=== PATIENT | male | born 1960 | race Caucasian/White ===

== ENCOUNTER → 2017-09-09 | Outpatient (CLI) | payer BC ==
--- NOTE | 2017-09-09 09:42 | XR ---
EXAMINATION TYPE: XR chest 2V DATE OF EXAM: 09/09/2017 COMPARISON: 07/04/2016 INDICATION: Cough TECHNIQUE: Frontal and lateral views of the chest are obtained. FINDINGS: The heart size is normal. The pulmonary vasculature is normal. The lungs are clear. There is prior cardiac surgery for cardiac valve. Sternotomy wires are in the m idline. IMPRESSION: 1. No acute pulmonary process.
== END ==
LOC: RADXRMAIN 09:08
PROVIDERS: ATTEND Family Medicine
DX: R05 Cough (principal)
CPT/HCPCS: 71046

== ENCOUNTER 2017-11-19 07:29 | Day surgery (SDC) | payer BC ==
[2017-11-18 08:33] VITALS: BMI 35.2
[~2017-11-19 07:29] MED LIST: LACTATED RINGERS 1,000 ML IV SCH
[2017-11-19 08:16] VITALS: TEMP 97.2
[2017-11-19] MEDS ORDERED: PROPOFOL 10 MG/ML 20 ML VIAL IV ONE (08:28)
--- NOTE | 2017-11-19 08:32 | P.GSHP ---
History of Present Illness H&P Date: 11/19/17 CHIEF COMPLAINT: Colon screen HISTORY OF PRESENT ILLNESS: The patient is a 56-year-old male who presents for colon screen. Lower endoscopy was offered for further evaluation and management. PAST MEDICAL HISTORY: Please see list. PAST SURGICAL HISTORY: Please see list. MEDICATIONS: Please see list. ALLERGIES: Please see list. SOCIAL HISTORY: No illicit drug use FAMILY HISTORY: No reports of Crohn disease or ulcerative colitis. REVIEW OF ORGAN SYSTEMS: CONSTITUTIONAL: No reports of fevers or chills. PHYSICAL EXAM: VITAL SIGNS: Stable GENERAL: Well-developed pleasant in no acute distress. HEENT: No scleral icterus. Extraocular movements grossly intact. Moist buccal mucosa. NECK: Supple without lymphadenopathy. CHEST: Unlabored respirations. Equal bilateral excursions. CARDIOVASCULAR: Regular rate and rhythm. Distal 2+ pulses. ABDOMEN: Soft, nontender, nondistended. MUSCULOSKELETAL: No clubbing, cyanosis, or edema. ASSESSMENT: 1. Colon screen. PLAN: 1. Recommend proceeding with a lower endoscopy Past Medical History Past Medical History: Hypertension, Musculoskeletal Disorder Additional Past Medical History / Comment(s): . GOUT. SL VARICOSE VEINS. HX RT SHOULDER DISLOCATION. diverticultitis. History of Any Multi-Drug Resistant Organisms: None Reported Past Surgical History: Appendectomy, Cardiac Valve Replacement, Coronary Bypass/ CABG, Orthopedic Surgery Additional Past Surgical History / Comment(s): RT KNEE SURGERY. EPID INJ IN BACK. LASIK EYE SURG., CABG-2014, MITRAL VALVE 2014 Past Anesthesia/Blood Transfusion Reactions: No Reported Reaction Smoking Status: Never smoker - Past Family History Mother Family Medical History: Hypertension, Myocardial Infarction ([place]) Medications and Allergies Home Medications Medication Instructions Recorded Confirmed Type Febuxostat [Uloric] 40 mg PO DAILY 12/21/14 11/19/17 History Metoprolol Succinate [Toprol XL] 25 mg PO DAILY 12/21/14 11/19/17 History Cyclobenzaprine [Flexeril] 10 mg PO HS PRN 07/02/16 11/18/17 History Naproxen [Naproxen] 500 mg PO BID 07/02/16 11/19/17 History Aspirin EC [Ecotrin Low Dose] 81 mg PO DAILY 11/18/17 11/19/17 History Allergies Allergy/AdvReac Type Severity Reaction Status Date / Time Penicillins AdvReac aches Verified 11/18/17 08:28 Surgical - Exam Vital Signs Temp Pulse Resp Pulse Ox 97.2 F L 62 14 95 11/19/17 08:15 11/19/17 08:15 11/19/17 08:15 11/19/17 08:15
--- NOTE | 2017-11-19 08:52 | P.PCN ---
Date of Procedure: 11/19/17 Description of Procedure: PREOPERATIVE DIAGNOSIS: Colonoscopy screening. POSTOPERATIVE DIAGNOSIS: Colonoscopy screening. Multiple tubular adenomas throughout the colon. Multiple sigmoid diverticulosis OPERATION: Colonoscopy to the ileocecal valve and appendiceal orifice. Colonoscopy with multiple hot snare polypectomies. SURGEON: Chelsi Godfrey MD. ANESTHESIA: MAC. INDICATIONS: The patient is a 56-year-old male who presents for colonoscopy screening. Benefits and risks were described and informed consent was obtained. DESCRIPTION OF PROCEDURE: The patient had undergone Gatorade, MiraLAX and Dulcolax prep. He had been brought into the operating room and laid in the left lateral decubitus position. The prostate was smooth and without nodularity. After adequate intravenous sedation, the rectum was examined with 2% lidocaine jelly. No external hemorrhoids were encountered. The rectal tone was within normal limits. No lesions were palpated in the rectal vault. An Olympus colonoscope was advanced until the ileocecal valve and appendiceal orifice were clearly viewed. The prep was fair with visualization of the mucosal folds. The scope was removed with visualization of each mucosal fold. Scattered diverticulosis was encountered. Multiple colonic polyps were found and hot snare polypectomy. No evidence of focal colitis was found. Retroflexion of the scope demonstrated no grade 1 internal hemorrhoids without active bleeding or inflammation. The colon was desufflated. The patient had tolerated the procedure well. Withdrawal time was over 6 minutes. FINDINGS: No internal hemorrhoids, grade 1 No external hemorrhoids, grade 2. No arteriovenous malformations. Removal of 3 polyps from the proximal, mid transverse colon and descending colon : - Snare polypectomy proximal transverse colon, 10 mm tubulovillous adenoma polyp. - Snare polypectomy mid-transverse colon, 8 mm flat villous adenoma polyp. - Snare polypectomy descending colon, 5 mm flat villous adenoma polyp. Diffuse sigmoid diverticulosis No focal colitis. RECOMMENDATIONS: Given severity of tubular adenomas, recommend repeat colonoscopy 1 year, 2019. Plan - Discharge Summary New Discharge Prescriptions: No Action Metoprolol Succinate [Toprol XL] 25 mg PO DAILY Febuxostat [Uloric] 40 mg PO DAILY Naproxen [Naproxen] 500 mg PO BID Cyclobenzaprine [Flexeril] 10 mg PO HS PRN PRN Reason: Muscle Pain Aspirin EC [Ecotrin Low Dose] 81 mg PO DAILY Discharge Medication List Febuxostat [Uloric] 40 mg PO DAILY 12/21/14 [History] Metoprolol Succinate [Toprol XL] 25 mg PO DAILY 12/21/14 [History] Cyclobenzaprine [Flexeril] 10 mg PO HS PRN 07/02/16 [History] Naproxen [Naproxen] 500 mg PO BID 07/02/16 [History] Aspirin EC [Ecotrin Low Dose] 81 mg PO DAILY 11/18/17 [History]
[2017-11-19 09:04] VITALS: BP 120/76; PULSE 59; RESP 18
== END 2017-11-19 09:35 | disposition home or self-care (01) ==
LOC: ORWHC2ENDO 07:29
PROVIDERS: ATTEND Surgery Plastic and Reconstructive Surgery
DX: Z12.11 Encounter for screening for malignant neoplasm of colon (principal); D12.4 Benign neoplasm of descending colon; D12.3 Benign neoplasm of transverse colon; K57.30 Diverticulosis of large intestine without perforation or abscess without bleeding; I25.10 Atherosclerotic heart disease of native coronary artery without angina pectoris; I10 Essential (primary) hypertension; M10.9 Gout, unspecified; M17.9 Osteoarthritis of knee, unspecified; Z95.1 Presence of aortocoronary bypass graft; Z95.2 Presence of prosthetic heart valve; Z79.82 Long term (current) use of aspirin; Z79.1 Long term (current) use of non-steroidal anti-inflammatories (NSAID); Z79.899 Other long term (current) drug therapy; Z88.0 Allergy status to penicillin
CPT/HCPCS: 88305; 45385; J2704

== ENCOUNTER → 2018-09-30 | Outpatient (CLI) | payer BC ==
--- NOTE | 2018-09-30 10:11 | US ---
EXAMINATION TYPE: US abdomen complete DATE OF EXAM: 09/30/2018 COMPARISON: 07/04/2016 CLINICAL HISTORY: 57-year-old male R74.8 Abnormal Labs,R10.11 RUQ Abd Pain. Elevated LFT's TECHNIQUE: Multiple sonographic images of the abdomen are obtained. 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 Gallbladder: wnl Evidence for sonographic Goldberg's sign: No CBD: wnl Spleen: wnl Right Kidney: wnl Left Kidney: wnl Upper IVC: wnl Abd Aorta: wnl IMPRESSION: Hepatomegaly (19.3 cm). There is moderate to severe hepatic steatosis. Correlate with LFTs, lipid pro file, and patient risk factors. No cholelithiasis or biliary ductal dilatation.
== END ==
LOC: RADUSWWP 09:12
PROVIDERS: ATTEND Family Medicine
DX: K76.0 Fatty (change of) liver, not elsewhere classified (principal); R16.0 Hepatomegaly, not elsewhere classified
CPT/HCPCS: 76700

== ENCOUNTER 2018-12-26 08:35 | Inpatient (IN) | payer BC ==
--- NOTE | 2018-12-26 08:59 | ED ---
General Adult HPI - General Chief complaint: Upper Respiratory Infection Stated complaint: cough Time Seen by Provider: 12/26/18 08:50 Source: patient, RN notes reviewed Mode of arrival: ambulatory Limitations: no limitations - History of Present Illness Initial comments: Patient is a pleasant 58-year-old male presenting to the emergency Department with cough. Symptoms have been present now for 4-5 weeks. Patient did see his regular doctor and was prescribed medication without any improvement. Symptoms have somewhat worsened. Patient does have cough with occasional yellow sputum. Patient does have some mild associated dyspnea at times. Patient only gets chest discomfort with coughing. Patient states he does travel a lot for work. No leg pain or leg swelling. No significant fevers. Dyspnea does worsen somewhat with exertion. Patient does have orthopnea. - Related Data Home Medications Medication Instructions Recorded Confirmed Febuxostat [Uloric] 40 mg PO DAILY 12/21/14 12/26/18 Aspirin EC [Ecotrin Low Dose] 81 mg PO DAILY 11/18/17 12/26/18 Atorvastatin Calcium [Lipitor] 40 mg PO DAILY 12/26/18 12/26/18 Metoprolol Tartrate 25 mg PO HS 12/26/18 12/26/18 Metoprolol Tartrate 50 mg PO QAM 12/26/18 12/26/18 Allergies Allergy/AdvReac Type Severity Reaction Status Date / Time Penicillins AdvReac aches Verified 12/26/18 09:03 Review of Systems ROS Statement: Those systems with pertinent positive or pertinent negative responses have been documented in the HPI. ROS Other: All systems not noted in ROS Statement are negative. Constitutional: Denies: fever Eyes: Denies: eye pain ENT: Denies: ear pain Respiratory: Reports: as per HPI, cough Cardiovascular: Reports: dyspnea on exertion, orthopnea. Denies: edema Endocrine: Denies: fatigue Gastrointestinal: Denies: abdominal pain Genitourinary: Denies: dysuria Musculoskeletal: Denies: back pain Skin: Denies: rash Neurological: Denies: weakness Past Medical History Past Medical History: Hypertension, Musculoskeletal Disorder Additional Past Medical History / Comment(s): . GOUT. SL VARICOSE VEINS. HX RT SHOULDER DISLOCATION. diverticultitis. History of Any Multi-Drug Resistant Organisms: None Reported Past Surgical History: Appendectomy, Cardiac Valve Replacement, Coronary Bypass/CABG, Orthopedic Surgery Additional Past Surgical History / Comment(s): RT KNEE SURGERY. EPID INJ IN BACK. LASIK EYE SURG., CABG-2015, MITRAL VALVE 2015 Past Anesthesia/Blood Transfusion Reactions: No Reported Reaction Past Psychological History: No Psychological Hx Reported Smoking Status: Never smoker Past Alcohol Use History: None Reported Past Drug Use History: None Reported - Past Family History Mother Family Medical History: Hypertension, Myocardial Infarction ([place]) General Exam Limitations: no limitations General appearance: alert, in no apparent distress Head exam: Present: atraumatic Eye exam: Present: normal appearance, PERRL ENT exam: Present: normal oropharynx Neck exam: Present: normal inspection Respiratory exam: Present: normal lung sounds bilaterally. Absent: chest wall tenderness Cardiovascular Exam: Present: regular rate, irregular rhythm GI/Abdominal exam: Present: soft. Absent: tenderness Extremities exam: Present: normal inspection. Absent: pedal edema, calf tenderness Neurological exam: Present: alert Psychiatric exam: Present: normal affect, normal mood Skin exam: Present: normal color Course Vital Signs 12/26/18 12/26/18 12/26/18 08:37 08:45 11:15 Temperature 97.6 F Pulse Rate 107 H 18 L Respiratory 16 16 105 H Rate Blood Pressure 151/99 105/94 O2 Sat by Pulse 97 97 Oximetry EKG Findings - EKG Comments: EKG Findings:: Atrial flutter with a rate of 99. QRS 96. QT 380. QTC 47. Left axis. Poor R-wave progression. Inferior Q waves. No acute ST change. Frequent PVCs. Medical Decision Making - Medical Decision Making Patient reevaluated and resting comfortably at bedside. Heart rate between 108 and 117. Patient updated on results and plan. Case discussed in detail with Dr. Santiago, covering for Dr. Holguin, who will admit. - Lab Data Result diagrams: 12/26/18 09:30 12/26/18 09:30 Lab Results 12/26/18 12/26/18 12/26/18 Range/Units 09:30 09:30 09:30 WBC 7.0 (3.8-10.6) k/uL RBC 5.01 (4.30-5.90) m/uL Hgb 15.1 (13.0-17.5) gm/dL Hct 44.8 (39.0-53.0) % MCV 89.5 (80.0-100.0) fL MCH 30.1 (25.0-35.0) pg MCHC 33.7 (31.0-37.0) g/dL RDW 15.2 (11.5-15.5) % Plt Count 185 (150-450) k/uL Neutrophils % 66 % Lymphocytes % 21 % Monocytes % 5 % Eosinophils % 5 % Basophils % 1 % Neutrophils # 4.6 (1.3-7.7) k/uL Lymphocytes # 1.5 (1.0-4.8) k/uL Monocytes # 0.4 (0-1.0) k/uL Eosinophils # 0.3 (0-0.7) k/uL Basophils # 0.0 (0-0.2) k/uL PT (9.0-12.0) sec INR (<1.2) APTT (22.0-30.0) sec D-Dimer (<0.60) mg/L FEU Sodium 142 (137-145) mmol/L Potassium 4.1 (3.5-5.1) mmol/L Chloride 109 H (98-107) mmol/L Carbon Dioxide 25 (22-30) mmol/L Anion Gap 8 mmol/L BUN 13 (9-20) mg/dL Creatinine 0.66 (0.66-1.25) mg/dL Est GFR (CKD-EPI)AfAm >90 (>60 ml/min/1.73 sqM) Est GFR (CKD-EPI)NonAf >90 (>60 ml/min/1.73 sqM) Glucose 143 H (74-99) mg/dL Calcium 8.8 (8.4-10.2) mg/dL Total Bilirubin 1.1 (0.2-1.3) mg/dL AST 64 H (17-59) U/L ALT 92 H (21-72) U/L Alkaline Phosphatase 62 (38-126) U/L Creatine Kinase 109 (55-170) U/L Troponin I (0.000-0.034) ng/mL NT-Pro-B Natriuret Pep 2310 pg/mL Total Protein 6.6 (6.3-8.2) g/dL Albumin 3.9 (3.5-5.0) g/dL Influenza Type A RNA (Not Detectd) Influenza Type B (PCR) (Not Detectd) 0412/26/18 12/26/18 Range/Units 09:30 10:08 10:21 WBC (3.8-10.6) k/uL RBC (4.30-5.90) m/uL Hgb (13.0-17.5) gm/dL Hct (39.0-53.0) % MCV (80.0-100.0) fL MCH (25.0-35.0) pg MCHC (31.0-37.0) g/dL RDW (11.5-15.5) % Plt Count (150-450) k/uL Neutrophils % % Lymphocytes % % Monocytes % % Eosinophils % % Basophils % % Neutrophils # (1.3-7.7) k/uL Lymphocytes # (1.0-4.8) k/uL Monocytes # (0-1.0) k/uL Eosinophils # (0-0.7) k/uL Basophils # (0-0.2) k/uL PT 10.9 (9.0-12.0) sec INR 1.0 (<1.2) APTT 28.2 (22.0-30.0) sec D-Dimer 0.54 (<0.60) mg/L FEU Sodium (137-145) mmol/L Potassium (3.5-5.1) mmol/L Chloride (98-107) mmol/L Carbon Dioxide (22-30) mmol/L Anion Gap mmol/L BUN (9-20) mg/dL Creatinine (0.66-1.25) mg/dL Est GFR (CKD-EPI)AfAm (>60 ml/min/1.73 sqM) Est GFR (CKD-EPI)NonAf (>60 ml/min/1.73 sqM) Glucose (74-99) mg/dL Calcium (8.4-10.2) mg/dL Total Bilirubin (0.2-1.3) mg/dL AST (17-59) U/L ALT (21-72) U/L Alkaline Phosphatase (38-126) U/L Creatine Kinase (55-170) U/L Troponin I <0.012 (0.000-0.034) ng/mL NT-Pro-B Natriuret Pep pg/mL Total Protein (6.3-8.2) g/dL Albumin (3.5-5.0) g/dL Influenza Type A RNA Not Detected (Not Detectd) Influenza Type B (PCR) Not Detected (Not Detectd) - Radiology Data Radiology results: image reviewed (Chest x-ray shows mild cardiomegaly.) Critical Care Time Critical Care Time: Yes Total Critical Care Time: 32 Disposition Clinical Impression: Atrial flutter with rapid ventricular response, CHF (congestive heart failure) Disposition: ADMITTED IP TO THIS HOSP Is patient prescribed a controlled substance at d/c from ED?: No Referrals: Dionicio Holguin DO [Primary Care Provider] - 1-2 days Decision Time: 12:22
--- NOTE | 2018-12-26 10:03 | XR ---
EXAMINATION TYPE: XR chest 2V DATE OF EXAM: 12/26/2018 HISTORY: difficulty breathing. REFERENCE: Previous study dated 09/09/2017. FINDINGS: There has been a midline sternotomy. The heart is mildly enlarged. The lungs appear clear. Pleural space are clear. IMPRESSION: MILD CARDIOMEGALY.
[2018-12-26 10:17] LABS: Basophils % (A) 1 %; Eosinophils # (A) 0.3 k/uL (0-0.7); Eosinophils % (A) 5 %; HCT 44.8 % (39.0-53.0); HGB 15.1 gm/dL (13.0-17.5); Lymphocytes # (A) 1.5 k/uL (1.0-4.8); Lymphocytes % (A) 21 %; MCH 30.1 pg (25.0-35.0); MCHC 33.7 g/dL (31.0-37.0); MCV 89.5 fL (80.0-100.0); Mean Platelet Volume 7.9; Monocytes # (A) 0.4 k/uL (0-1.0); Monocytes % (A) 5 %; Neutrophils # (A) 4.6 k/uL (1.3-7.7); Neutrophils % (A) 66 %; Platelet Count 185 k/uL (150-450); RBC 5.01 m/uL (4.30-5.90); RDW 15.2 % (11.5-15.5)
[2018-12-26 10:23] LABS: ALT 92 U/L (21-72); AST 64 U/L (17-59); Albumin 3.9 g/dL (3.5-5.0); Alkaline Phosphatase 62 U/L (38-126); Anion Gap 8 mmol/L; Blood Urea Nitrogen 13 mg/dL (9-20); Calcium 8.8 mg/dL (8.4-10.2); Carbon Dioxide 25 mmol/L (22-30); Chloride 109 mmol/L (98-107); Creatine Kinase 109 U/L (55-170); Glucose 143 mg/dL (74-99); Potassium 4.1 mmol/L (3.5-5.1); Sodium 142 mmol/L (137-145); Total Bilirubin 1.1 mg/dL (0.2-1.3); Total Protein 6.6 g/dL (6.3-8.2)
[2018-12-26 10:32] LABS: D-Dimer 0.54 mg/L FEU (<0.60); Partial Thromboplastin Time 28.2 sec (22.0-30.0); Prothrombin Time 10.9 sec (9.0-12.0)
[2018-12-26] MEDS ORDERED: HEPARIN SODIUM,PORCINE 5,000 UNIT/ML 1 ML VIAL IV ONE (12:20)
[2018-12-26] MEDS ORDERED: HEPARIN SODIUM,PORCINE 5,000 UNIT/ML 1 ML VIAL IV PRN (12:20)
[2018-12-26] MEDS ORDERED: ASPIRIN 81 MG PO STA (12:22)
[2018-12-26] MEDS ORDERED: NITROGLYCERIN SL TABS 0.4 MG TAB SUBLINGUAL PRN (12:22)
[2018-12-26] MEDS ORDERED: DILTIAZEM 125 MG in SODIUM CHLORIDE 0.9% 100 ML IV SCH (12:30)
[2018-12-26] MEDS ORDERED: HEPARIN SOD,PORK IN 0.45% NACL 25,000 UNIT in 0.45% NACL 1 250ML.BAG IV SCH (12:30)
[2018-12-26] MEDS: FUROSEMIDE 10 MG/ML 4 ML VIAL IV SCH ×2 (13:03→20:49)
[2018-12-26] MEDS ORDERED: NITROGLYCERIN OINT 1 INCH/GM PACKET TOPICAL SCH (18:00)
[2018-12-26] MEDS ORDERED: METOPROLOL TARTRATE 25 MG TAB PO SCH (21:00)
--- NOTE | 2018-12-26 22:28 | HP ---
HISTORY AND PHYSICAL DATE OF SERVICE: December 26, 2018. PRESENTING COMPLAINT: Cough, short of breath. HISTORY OF PRESENTING COMPLAINT: Pleasant 58-year-old patient of Dr. Holguin. Chronic stable medical conditions include hypertension, gout, mitral valve repair from endocarditis, diverticulosis. The patient back in 2016 had mitral valve endocarditis went down to [facility] where he had a bovine valve replaced. The patient, about for a month, has had respiratory symptoms, cough, shortness of breath and had some yellow sputum. Did get antibiotics though he did not feel better. Then he kept having the same symptoms back and for forth, back and occasionally yellow sputum. Sometimes he gets sweats at night, but no fever. No chills. Appetite has been okay. Bowels have been okay. He finally decided to come in, get checked out. The patient found to be in atrial fibrillation with rapid ventricular rate about 120s. Also found to be in congestive heart failure, was started on IV Lasix, IV Cardizem drip, IV heparin, admitted for the same. No chest pain per se. REVIEW OF SYSTEMS: CONSTITUTIONAL: Tired. HEENT None. RESPIRATORY as above. CARDIOVASCULAR: As above. GASTROINTESTINAL: None. GENITOURINARY: None. MUSCULOSKELETAL none. DERMATOLOGICAL, HEMATOLOGIC, LYMPHATIC: none. PSYCHIATRY none. NEUROLOGICAL: None. PAST MEDICAL HISTORY: Hypertension, musculoskeletal disorder, gout, right shoulder dislocation, diverticulitis, endocarditis of the mitral valve. PAST SURGICAL HISTORY: Appendectomy, cardiac valve replacement, right knee surgery, LASIK eye surgery, mitral valve repair in 2014. SOCIAL HISTORY: No smoking, no alcohol. . 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 FAMILY HISTORY: Hypertension, myocardial infarction. HOME MEDICATIONS: 1. Metoprolol 50 mg in the morning, 25 mg at night. 2. Uloric 40 mg a day. 3. Lipitor 40 mg a day. 4. Aspirin 81 mg a day. ALLERGIES: PENICILLIN. PHYSICAL EXAMINATION: VITAL SIGNS: Temperature 97.6, pulse 120, respirations 18, blood pressure 115/99, pulse ox 97% on room air. GENERAL APPEARANCE: Well built. BMI 40.3. Sitting up a bit tired-appearing. EYES: Pupils equal. Conjunctivae normal. HEENT: External appearance of nose and ears normal. Oral cavity normal. NECK: JVD unable to assess. Mass not palpable. RESPIRATORY: Effort increased. LUNGS: Diminished breath sounds, some crackles. CARDIOVASCULAR: Heart sounds irregular. No edema. ABDOMEN: Distended, soft. Liver and spleen not palpable. LYMPHATICS: No lymph nodes palpable in the neck and axilla. PSYCHIATRY: Alert and oriented x3. Mood and affect normal. NEUROLOGICAL: Pupils equal. Cranial nerves grossly intact. Power and sensation grossly intact. INVESTIGATIONS: Reviewed in the clinical context. White count 7, hemoglobin 15.1, potassium 4.1, BUN and creatinine is normal. Troponin times two is negative. Influenza A and B is negative. EKG tracing personally reviewed by me shows atrial flutter with a variable rate. Chest x-ray film personally reviewed by me shows cardiomegaly, venous prominence. ASSESSMENT: 1. New onset atrial flutter, duration unclear with rate uncontrolled. 2. 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 3. Acute congestive heart failure, EF not known. 4. Essential hypertension. 5. Chronic gout. 6. Diverticulosis. 7. Morbid obesity, BMI 40.3. 8. Probably viral bronchitis. PLAN: The patient is currently on IV heparin, IV Cardizem, beta bret. Home medications are resumed. Care was discussed with the patient. Cardiology was consulted. Copy to Dr. Holguin. The patient follows with regulation supervisor, Dr. Jerson Santa. MMODL / IJN: [id number] /
[2018-12-27] MEDS: FUROSEMIDE 10 MG/ML 4 ML VIAL IV SCH (04:59)
[2018-12-27 07:08] LABS: Partial Thromboplastin Time 27.8 sec (22.0-30.0)
[2018-12-27 07:13] LABS: Anion Gap 9 mmol/L; Blood Urea Nitrogen 15 mg/dL (9-20); Calcium 9.3 mg/dL (8.4-10.2); Carbon Dioxide 33 mmol/L (22-30); Chloride 100 mmol/L (98-107); Cholesterol 122 mg/dL (<200); Glucose 152 mg/dL (74-99); HDL Cholesterol 38 mg/dL (40-60); LDL Cholesterol,Calculated 52 mg/dL (0-99); Potassium 3.9 mmol/L (3.5-5.1); Sodium 142 mmol/L (137-145); Triglycerides 162 mg/dL (<150)
[2018-12-27 07:23] LABS: Basophils # (A) 0.1 k/uL (0-0.2); Basophils % (A) 1 %; Eosinophils # (A) 0.4 k/uL (0-0.7); Eosinophils % (A) 4 %; HCT 48.2 % (39.0-53.0); HGB 16.3 gm/dL (13.0-17.5); Lymphocytes # (A) 1.7 k/uL (1.0-4.8); Lymphocytes % (A) 19 %; MCH 30.8 pg (25.0-35.0); MCHC 33.7 g/dL (31.0-37.0); MCV 91.3 fL (80.0-100.0); Mean Platelet Volume 7.3; Monocytes # (A) 0.5 k/uL (0-1.0); Monocytes % (A) 6 %; Neutrophils # (A) 6.2 k/uL (1.3-7.7); Neutrophils % (A) 69 %; Platelet Count 229 k/uL (150-450); RBC 5.28 m/uL (4.30-5.90); RDW 14.1 % (11.5-15.5)
[2018-12-27] MEDS: ALLOPURINOL 100 MG TAB PO SCH (07:28)
[2018-12-27] MEDS: ATORVASTATIN 40 MG TAB PO SCH (07:29)
[2018-12-27] MEDS ORDERED: METOPROLOL TARTRATE 50 MG TAB PO SCH (09:00)
[2018-12-27] MEDS ORDERED: ASPIRIN 325 MG TAB PO SCH (09:00)
[2018-12-27] MEDS ORDERED: Potassium Replacement Protocol 1 EACH MISC MISCELLANE PRN (09:41)
[2018-12-27] MEDS ORDERED: Magnesium Replacement Protocol 1 EACH MISC MISCELLANE PRN (09:42)
--- NOTE | 2018-12-27 10:34 | CONS ---
CONSULTATION HISTORY OF PRESENT ILLNESS: Mr. Ceron is a 58-year-old male status post mitral valve replacement and single bypass to the LAD following admission in 2016 with endocarditis and embolic phenomenon. He is followed by Dr. Santa on a regular basis. He has been doing well until the last month when he started complaining of progressive dyspnea and cough. He was treated with antibiotics for bronchitis, but did not feel better. He came into the emergency room, was noted to be in atrial flutter. The patient has chest discomfort from the coughing. He had no clear documented fever at home, although he felt warm. He has no significant peripheral edema. He has some orthopnea. No PND. He is not aware of the arrhythmia. He had one episode of palpitation that occurred a week ago that he thought was related to drinking Mountain Dew. He is usually not very active physically but has no change in his activity, although he is feeling more fatigued and tired. He has no prior history of atrial fibrillation. He had an echocardiogram as an outpatient last week, the results are not available to me, but he thinks he was told that he may have been in atrial fibrillation at that time. His coronary risk factors are remarkable for hypertension and hyperlipidemia. He is nonsmoker and nondiabetic. MEDICATION: Include aspirin once a day, metoprolol 50 in the morning, 25 in the afternoon, Uloric and Lipitor 40 mg daily. REVIEW OF SYSTEMS: RESPIRATORY system: He has the cough, the dyspnea on exertion. Wheezing. No history of obstructive lung disease. GI system: No recent GI bleed. No peptic ulcer disease. system: No dysuria or hematuria. NERVOUS SYSTEM: No stroke or seizure. PHYSICAL EXAMINATION: He is a 58-year-old male, alert, oriented, in no apparent distress. Blood pressure 116/70 with a heart rate in the 80s. HEAD: Normocephalic. Eyes sclerae anicteric. NECK: Good carotid upstroke. No bruit. No jugular venous distention. LUNGS: Clear to auscultation. HEART: Irregularly irregular. S1-S2. No S3 with systolic murmur at the base. No diastolic murmur. No rub. ABDOMEN: Soft, nontender. Positive bowel sounds. No organomegaly. Obese. EXTREMITIES: No edema. Intact distal pulses. LAB DATA: Revealed atrial flutter with variable AV block and occasional PVCs and nonspecific ST-T wave changes. Troponin less than 0.012 for 3 samples. Potassium 3.9, BUN and creatinine 15 and 0.88. Cholesterol 122, LDL 52, hemoglobin of 16.3. Chest x-ray shows no acute infiltrate. IMPRESSION: 1. Atrial flutter-fibrillation of recent onset, not diagnosed in the past. Duration unclear. 2. Status post mitral valve replacement and single bypass in a setting of mitral valve endocarditis and embolic phenomenon. 3. History of hypertension. 4. Hyperlipidemia. RECOMMENDATION: I will switch him to oral anticoagulation, oral diuretics as well as increase the dose of beta bret. I will obtain the results of his echocardiogram that was obtained as an outpatient. If he was in atrial fibrillation at that time then probably has been going on longer than we think. Once he is anticoagulated, he would require to be cardioverted. Depending on his progress, further recommendations will be made. Those findings and recommendations were discussed with the patient and his family and they are in full understanding and agreement. CHERYL / TORIBION: [id number] /
[2018-12-27] MEDS: APIXABAN 5 MG TAB PO SCH ×2 (10:43→19:46)
[2018-12-27] MEDS: MAGNESIUM SULFATE-D5W PMX 1 GM in DEXTROSE/WATER 1 100ML.BAG IVPB SCH ×2 (10:45→14:28)
[2018-12-27] MEDS: POTASSIUM CHLORIDE ER 20 MEQ TAB.ER PO SCH ×2 (10:45→14:28)
[2018-12-27] MEDS: FUROSEMIDE 20 MG TAB PO SCH (16:51)
[2018-12-27] MEDS: METOPROLOL TARTRATE 50 MG TAB PO SCH (19:46)
--- NOTE | 2018-12-27 23:13 | PN ---
PROGRESS NOTE DATE OF SERVICE: 12/27/2018. PRESENTING COMPLAINT: Cough, short of breath. INTERVAL HISTORY: This patient admitted with atrial fibrillation, and congestive heart failure symptoms. Heart rate somewhat better controlled today. Does feel a bit tired. Sitting up. Medications adjusted by Cardiology earlier today. REVIEW OF SYSTEMS: Done for constitutional, cardiovascular, GI, pulmonary; relevant findings as above. CURRENT MEDICATIONS: Reviewed that include Eliquis, p.o. Lasix, Lopressor 50 mg b.i.d. PHYSICAL EXAMINATION: VITAL SIGNS: Temperature 97.1, pulse 98, respiratory rate 18, blood pressure 140/84, pulse ox 92% on room air. GENERAL APPEARANCE: Sitting up, awake. EYES: Pupils equal. Conjunctivae normal. NECK: JVD not raised. Mass not palpable. RESPIRATORY: Effort increased. LUNGS: Decreased breath sounds. CARDIOVASCULAR: Heart sounds irregular. No edema. ABDOMEN: Distended, soft. Liver and spleen not palpable. PSYCHIATRY: Alert and oriented x3. Mood and affect normal. INVESTIGATIONS: White count 9, hemoglobin 16.3, potassium 3.9, BUN and creatinine normal. TSH is 1.5. LDL 52. ASSESSMENT: 1. New onset atrial flutter, rate uncontrolled on presentation with some improvement. 2. 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 3. Acute congestive heart failure EF not known. 2D echo pending. 4. Essential hypertension. 5. Chronic gout. 6. Colonic diverticulosis. 7. Morbid obesity BMI 40.3. 8. Viral bronchitis. PLAN: Care was discussed with the patient and . Questions were answered. Current medications to continue. Await 2D echocardiogram. Follow telemetry. MMODL / IJN: [id number] /
[2018-12-28 06:50] LABS: Basophils # (A) 0.1 k/uL (0-0.2); Basophils % (A) 1 %; Eosinophils # (A) 0.4 k/uL (0-0.7); Eosinophils % (A) 5 %; HCT 48.3 % (39.0-53.0); HGB 16.3 gm/dL (13.0-17.5); Lymphocytes # (A) 2.1 k/uL (1.0-4.8); Lymphocytes % (A) 25 %; MCH 30.2 pg (25.0-35.0); MCHC 33.7 g/dL (31.0-37.0); MCV 89.7 fL (80.0-100.0); Mean Platelet Volume 7.6; Monocytes # (A) 0.5 k/uL (0-1.0); Monocytes % (A) 6 %; Neutrophils # (A) 5.2 k/uL (1.3-7.7); Neutrophils % (A) 62 %; Platelet Count 225 k/uL (150-450); RBC 5.38 m/uL (4.30-5.90); RDW 15.3 % (11.5-15.5); WBC 8.4 k/uL (3.8-10.6)
[2018-12-28 06:55] LABS: INR 1.1 (<1.2); Prothrombin Time 11.3 sec (9.0-12.0)
[2018-12-28 07:02] LABS: Anion Gap 6 mmol/L; Blood Urea Nitrogen 17 mg/dL (9-20); Calcium 10.3 mg/dL (8.4-10.2); Carbon Dioxide 31 mmol/L (22-30); Chloride 103 mmol/L (98-107); Glucose 140 mg/dL (74-99); Magnesium 1.7 mg/dL (1.6-2.3); Sodium 140 mmol/L (137-145)
[2018-12-28] MEDS: ALLOPURINOL 100 MG TAB PO SCH (09:06)
[2018-12-28] MEDS: ATORVASTATIN 40 MG TAB PO SCH (09:06)
[2018-12-28] MEDS: ASPIRIN 81 MG PO SCH (09:06)
[2018-12-28] MEDS: METOPROLOL TARTRATE 50 MG TAB PO SCH (09:06)
[2018-12-28] MEDS: APIXABAN 5 MG TAB PO SCH ×2 (09:06→20:44)
[2018-12-28] MEDS: FUROSEMIDE 20 MG TAB PO SCH ×2 (09:07→18:28)
[2018-12-28] MEDS ORDERED: SODIUM CHLORIDE 0.9% 1,000 ML IV SCH (10:15)
--- NOTE | 2018-12-28 12:50 | P.PN ---
Subjective Progress Note Date: 12/28/18 This is a 58-year-old gentleman who is status post mitral valve replacement and single bypass to the LAD. Patient does have history of hypertension, hyperlipidemia. He presented to the hospital on this admission with progressive dyspnea with associated cough, he was treated as an outpatient with antibiotics for possible bronchitis. Patient was found here to be in atrial flutter/fibrillation with rapid ventricular response. According the patient, he has noted himself to have palpitations off and on at home. He does drink Mountain Dew which has a lot of caffeine, he felt may be secondary to that. Patient also states that he had an echo cardiac gram with Doppler study performed last week at the office, he was asked during that time if he had any history of atrial fibrillation. The patient was seen in consultation by Dr. Kam, he was initiated on anticoagulation. Blood pressure 110/70 with a heart rate in the 100s this morning, 94% on room air. Continues to be in atrial fibrillation. He says states that overall his breathing is improved, but with exertion he still notices himself to be short of breath. His white blood cell count is 8.4, hemoglobin 16.3, platelet count 225. Sodium 140, potassium 4.0, BUN 17 and creatinine 0.8, magnesium 1.7 this morning. She was questioning this morning as to whether or not he could have his cardioversion while he is in the hospital, Dr. Kam did speak with them regarding cardioversion as an outpatient down the road. I did speak with Dr. Kam, JENNIFER will be scheduled tomorrow as well as elective cardioversion by Dr. Yodit Santa. The risks and the benefits were explained to the patient in detail. Objective - Vital Signs Vital signs: Vital Signs Temp 98.2 F 12/28/18 10:21 Pulse 76 12/28/18 11:54 Resp 16 12/28/18 11:54 BP 111/76 12/28/18 11:54 Pulse Ox 94 L 12/28/18 11:54 Intake & Output 12/27/18 12/28/18 12/28/18 18:59 06:59 18:59 Intake Total 1361.791 10 240 Output Total 1400 Balance -38.209 10 240 Weight 124.8 kg Intake: IV 250 10 Diltiazem 125 mg In 30 Sodium Chloride 0.9% 100 ml @ 5 MG/HR 5 mls/hr IV .Q24H KATE Rx#:[id number] Invasive Line 1 20 10 Magnesium Sulfate-D5w Pmx 200 1 gm In Dextrose/Water 1 100ml.bag @ 100 mls/hr IVPB Q1H KATE Rx#: [id number] Intake, IV Titration 271.791 Amount Diltiazem 125 mg In 107.667 Sodium Chloride 0.9% 100 ml @ 5 MG/HR 5 mls/hr IV .Q24H KATE Rx#:[id number] Heparin Sod,Pork in 0.45% 164.124 NaCl 25,000 unit In 0.45 % NaCl 1 250ml.bag @ 7.6 UNITS/KG/HR 9.959 mls/hr IV .Q24H KATE Rx#: [id number] Oral 840 240 Output: Urine 1400 Other: # Voids 3 1 0 - Exam PHYSICAL EXAMINATION: GENERAL: 58-year-old gentleman in no acute distress at the time of my examination HEENT: Head is atraumatic, normocephalic. Pupils equal, round. Sclera anicteric. Conjunctiva are clear. Mucous membranes of the mouth are moist. Neck is supple. There is no elevated jugular venous pressure. No carotid bruit is heard. HEART EXAMINATION: S1 and S2 irregularly irregular a systolic murmur is heard CHEST EXAMINATION: Lungs are clear to auscultation and precussion. No chest wall tenderness is noted on palpation or with deep breathing. ABDOMEN: Soft, nontender. Bowel sounds are heard. No organomegaly noted. EXTREMITIES: 2+ peripheral pulses with no evidence of peripheral edema and no calf tenderness noted. NEUROLOGIC patient is awake, alert and oriented 3 . . - Labs CBC & Chem 7: 12/28/18 06:18 12/28/18 06:18 Labs: Abnormal Lab Results - Last 24 Hours (Table) 12/28/18 Range/Units 06:18 Carbon Dioxide 31 H (22-30) mmol/L Glucose 140 H (74-99) mg/dL Calcium 10.3 H (8.4-10.2) mg/dL Assessment and Plan Plan: Assessment and plan #1 atrial flutter/fibrillation, of recent onset, persistent #2 status post mitral valve replacement and single bypass in setting of mitral valve endocarditis and embolic phenomenon #3 hypertension #4 hyperlipidemia Plan Continue anticoagulation, we will also increase the dose of beta bret for more optimal rate control. Patient will be scheduled morning undergo JENNIFER and elective cardioversion. The risks and the benefits were explained to the patient in detail and he is willing to proceed. DNP note has been reviewed, I agree with a documented findings and plan of care. Patient was seen and examined.
[2018-12-28 14:24] VITALS: BMI 38.3
--- NOTE | 2018-12-28 18:17 | PN ---
PROGRESS NOTE DATE OF SERVICE: December 28, 2018. PRESENTING COMPLAINT: Cough, short of breath. INTERVAL HISTORY: Patient admitted with atrial fibrillation, uncontrolled congestive heart failure symptoms. Heart rate is better controlled. Breathing is more stable. Cardiology is planning for a JENNIFER followed by cardioversion tomorrow. REVIEW OF SYSTEMS: Done for constitutional, cardiovascular, GI, pulmonary; relevant findings as above. CURRENT MEDICATIONS: Reviewed that include Eliquis, p.o. Lasix, Lopressor 75 mg b.i.d. PHYSICAL EXAMINATION: VITAL SIGNS: Temperature 98.2, pulse 76, respiration 16, blood pressure 101/76, pulse ox 94 percent on room air. GENERAL APPEARANCE: Sitting up in a chair, awake. EYES: Pupils are equal. Conjunctivae normal. NECK: JVD not raised. Mass not palpable. RESPIRATORY: Effort increased. LUNGS: Diminished breath sounds. CARDIOVASCULAR. Heart sounds irregular. No edema. ABDOMEN: Soft, nontender. Liver and spleen not palpable. PSYCHIATRY: Alert and oriented times three. Mood and affect normal. INVESTIGATIONS: White count 8.4, hemoglobin 16.3, potassium 4.0. BUN and creatinine is normal. TSH is normal. ASSESSMENT: 1. New onset atrial flutter, rate uncontrolled on presentation with some improvement in rate. 2. 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 3. Acute congestive heart failure, EF not known. 4. Essential hypertension. 5. Chronic gout. 6. Colonic diverticulosis. 7. Morbid obesity, BMI 40.3. 8. Viral bronchitis, improving. PLAN: Continue current medication and treatment plan. Awaiting 2D echo results. Patient is going for JENNIFER followed by cardioversion tomorrow. MMODL / IJN: [id number] /
[2018-12-28] MEDS: MAGNESIUM SULFATE-D5W PMX 1 GM in DEXTROSE/WATER 1 100ML.BAG IVPB SCH ×2 (18:20→20:53)
[2018-12-28] MEDS: METOPROLOL TARTRATE 25 MG TAB PO SCH (20:44)
[2018-12-28] MEDS ORDERED: MELATONIN 3 MG TABLET PO PRN (21:26)
[2018-12-29] MEDS: ALLOPURINOL 100 MG TAB PO SCH (06:23)
[2018-12-29] MEDS: ATORVASTATIN 40 MG TAB PO SCH (06:24)
[2018-12-29] MEDS: METOPROLOL TARTRATE 25 MG TAB PO SCH (06:24)
[2018-12-29] MEDS: APIXABAN 5 MG TAB PO SCH ×2 (06:24→20:31)
[2018-12-29] MEDS: ASPIRIN 81 MG PO SCH (06:24)
[2018-12-29] MEDS ORDERED: IV FLUID CONTINUATION 1,000 ML IV ONE (07:06)
[2018-12-29] MEDS: BENZOCAINE SPRAY 1 CAN MUCOUS MEM ONE ×2 (07:10→07:38)
[2018-12-29 07:11] LABS: INR 1.1 (<1.2); Prothrombin Time 11.3 sec (9.0-12.0)
[2018-12-29 07:13] LABS: Basophils # (A) 0.1 k/uL (0-0.2); Basophils % (A) 1 %; Eosinophils # (A) 0.4 k/uL (0-0.7); Eosinophils % (A) 5 %; HCT 45.6 % (39.0-53.0); HGB 15.7 gm/dL (13.0-17.5); Lymphocytes # (A) 1.9 k/uL (1.0-4.8); Lymphocytes % (A) 23 %; MCHC 34.4 g/dL (31.0-37.0); Mean Platelet Volume 7.4; Monocytes # (A) 0.4 k/uL (0-1.0); Monocytes % (A) 5 %; Neutrophils # (A) 5.3 k/uL (1.3-7.7); Neutrophils % (A) 64 %; Platelet Count 201 k/uL (150-450); RBC 5.07 m/uL (4.30-5.90); RDW 15.1 % (11.5-15.5); WBC 8.2 k/uL (3.8-10.6)
[2018-12-29] MEDS ORDERED: PROPOFOL 10 MG/ML 20 ML VIAL IV ONE (07:13)
[2018-12-29 07:14] LABS: Anion Gap 6 mmol/L; Blood Urea Nitrogen 17 mg/dL (9-20); Calcium 9.5 mg/dL (8.4-10.2); Carbon Dioxide 33 mmol/L (22-30); Chloride 101 mmol/L (98-107); Glucose 130 mg/dL (74-99); Potassium 4.4 mmol/L (3.5-5.1); Sodium 140 mmol/L (137-145)
--- NOTE | 2018-12-29 07:46 | ECHOT ---
TRANSESOPHAGEAL ECHOCARDIOGRAM INDICATION: Evaluation left atrial appendage. PROCEDURE: After explaining the procedure to the patient, its risks and the complications, his blood pressure, heart rate, O2 saturation was monitored. The throat was sprayed with Cetacaine. The probe was introduced in the esophagus without difficulty. Images were obtained. Following that, the probe was removed. There was no immediate complication. FINDINGS: Left atrial size is moderately dilated. Left atrial appendage is closed. The left ventricular size is normal. There is evidence of global hypokinesis. Estimated ejection fraction 40%. The aortic valve, tricuspid valve are normal. Descending thoracic aorta appears to be normal. Contrast bubble study revealed no shunting across the interatrial septum. No pericardial effusion was noted. The mitral valve is a bioprosthetic valve with normal appearance. Doppler pulse wave and color Doppler obtained and revealed a mild mitral with mild to moderate tricuspid regurgitation. There was no shunting by color Doppler study. CONCLUSION: 1. Dilated left atrium with appearance of closure of the left atrial appendage. 2. Normal left ventricular size with moderately impaired left ventricular systolic function with global hypokinesis. 3. A bioprosthetic mitral valve with mild mitral regurgitation. 4. Mild to moderate tricuspid regurgitation. 5. No shunting by color Doppler study. MMODL / IJN: [id number] /
--- NOTE | 2018-12-29 07:52 | CE ---
CARDIAC ELECTROPHYSIOLOGY REPORT CARDIOVERSION PROCEDURE NOTE: INDICATION: Atrial flutter. PROCEDURE: After explaining the procedure to the patient, its risks and complication, and after performing transesophageal echocardiogram, a synchronized biphasic cardioversion using 200 joules was performed with sabianism to normal sinus rhythm. There was no immediate complication. CHERYL / YANG: [id number] /
[2018-12-29] MEDS: FUROSEMIDE 20 MG TAB PO SCH ×2 (11:39→17:42)
[2018-12-29] MEDS: METOPROLOL TARTRATE 50 MG TAB PO SCH ×2 (11:41→20:31)
--- NOTE | 2018-12-29 14:23 | CDI ---
Documentation Clarification Form Date: 12/29/2018 2:14:38 PM From: Bertha OreillyMirCONG bey, CCDS Admit Date: 12/26/2018 12:22:00 PM Patient Name: Lamont Ceron Visit Number: [id number] Discharge Date: ATTENTION: The Clinical Documentation Specialists (CDI) and [facility] Coding Staff appreciate your assistance in clarifying documentation. Please respond to the clarification below the line at the bottom and electronically sign. The CDI & [facility] Coding staff will review the response and follow-up if needed. Please note: Queries are made part of the Legal Health Record. If you have any questions, please contact the author of this message via ITS. Dr. Sarina Kam: Per the ED note: "Atrial flutter with a rate of 99." Per the History & Physical: "New onset atrial flutter, duration unclear with rate uncontrolled." Per the Cardiology consult: "Revealed atrial flutter with variable AV block and occasional PVCs and nonspecific ST-T wave changes. Atrial flutter-fibrillation of recent onset, not diagnosed in the past." History/Risk factors: MVR due to endocarditis, Hypertension, Gout, Diverticulosis. Clinical Indicators: Presented with cough & sob. Diagnosed with Atrial Flutter, Atrial Fibrillation, persistent; & heart failure with unknown EF. EKG #1: R 99 Atrial flutter w/variable AV block w/PVCs. EKG #2: R 89 Atrial flutter w/variable AV block w/premature aberrantly conducted complexes. Treatment: Telemetry, IV Heparin drip, Aspirin, Nitro sl, IV Cardizem, Nitropaste, IV Lasix, IV MagSulfate. Px: JENNIFER & Cardioversion In your professional opinion, in order to capture the severity of condition; can you please clarify the type of Atrial Flutter if known? Typical/Type I xxxxxx Atypical/Type II Other, please specify Unable to determine (Last Revision: November 2017) ZACKARYD
--- NOTE | 2018-12-29 17:13 | PN ---
PROGRESS NOTE DATE OF SERVICE: 12/29/2018 PRESENTING COMPLAINT: Short of breath. INTERVAL HISTORY: Patient was admitted with atrial fibrillation, uncontrolled, and CHF symptoms. Patient did undergo a JENNIFER today that showed some global cardiomyopathy. Patient subsequently underwent successful cardioversion. Patient's breathing is better, up and about in the hallway. REVIEW OF SYSTEMS: Done for constitutional, cardiovascular, GI, pulmonary; relevant findings as above. CURRENT MEDICATIONS: Reviewed. They include p.o. Lasix, Lopressor. PHYSICAL EXAMINATION: Afebrile. Pulse 71, respiration 16, blood pressure 105/70, pulse ox 94% on 2 L. GENERAL APPEARANCE: Sitting up, comfortable. EYES: Pupils equal. Conjunctivae normal. NECK: JVD not raised. Mass not palpable. RESPIRATORY: Effort increased. LUNGS: Decreased breath sounds. CARDIOVASCULAR: First and second sounds normal. No edema. ABDOMEN: Soft, non-tender. Liver and spleen not palpable. PSYCHIATRY: Alert and oriented x3. Mood and affect normal. INVESTIGATIONS: White count 8.2, hemoglobin 15.7. Potassium 4.4. BUN and creatinine normal. ASSESSMENT: 1. Paroxysmal atrial flutter, uncontrolled on presentation, now with successful cardioversion, currently in sinus rhythm. 2. 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 3. Acute congestive heart failure; could be related to heart rate; currently ejection fraction not known. 4. Essential hypertension. 5. Chronic gout. 6. Colonic diverticulosis. 7. Morbid obesity with body mass index of 40.3. 8. Viral bronchitis. PLAN: Patient is up and about in the hallway, doing better. Await 2D echo results patient's EF. Cardiology wants to watch the patient another day. The patient is ambulating and doing well. MMODL / IJN: [id number] /
[2018-12-29] MEDS: SODIUM CHLORIDE 0.9% 1,000 ML IV SCH (17:42)
[2018-12-30 06:55] LABS: INR 1.1 (<1.2); Prothrombin Time 11.6 sec (9.0-12.0)
[2018-12-30 06:57] LABS: Basophils # (A) 0.1 k/uL (0-0.2); Basophils % (A) 1 %; Eosinophils # (A) 0.4 k/uL (0-0.7); Eosinophils % (A) 5 %; HCT 43.3 % (39.0-53.0); HGB 14.5 gm/dL (13.0-17.5); Lymphocytes # (A) 1.8 k/uL (1.0-4.8); Lymphocytes % (A) 23 %; MCH 30.2 pg (25.0-35.0); MCHC 33.5 g/dL (31.0-37.0); MCV 90.1 fL (80.0-100.0); Mean Platelet Volume 7.6; Monocytes # (A) 0.3 k/uL (0-1.0); Monocytes % (A) 4 %; Neutrophils # (A) 4.9 k/uL (1.3-7.7); Neutrophils % (A) 65 %; Platelet Count 185 k/uL (150-450); RBC 4.81 m/uL (4.30-5.90); RDW 15.1 % (11.5-15.5); WBC 7.5 k/uL (3.8-10.6)
[2018-12-30 06:58] LABS: Anion Gap 6 mmol/L; Blood Urea Nitrogen 18 mg/dL (9-20); Calcium 9.1 mg/dL (8.4-10.2); Carbon Dioxide 30 mmol/L (22-30); Chloride 103 mmol/L (98-107); Glucose 119 mg/dL (74-99); Potassium 4.2 mmol/L (3.5-5.1); Sodium 139 mmol/L (137-145)
[2018-12-30] MEDS: SODIUM CHLORIDE 0.9% 1,000 ML IV SCH (07:43)
[2018-12-30 08:19] VITALS: RESP 18
[2018-12-30] MEDS: ASPIRIN 81 MG PO SCH (08:19)
[2018-12-30] MEDS: APIXABAN 5 MG TAB PO SCH (08:20)
[2018-12-30] MEDS: ATORVASTATIN 40 MG TAB PO SCH (08:20)
[2018-12-30] MEDS: FUROSEMIDE 20 MG TAB PO SCH (08:20)
[2018-12-30] MEDS: METOPROLOL TARTRATE 50 MG TAB PO SCH (08:20)
[2018-12-30] MEDS: ALLOPURINOL 100 MG TAB PO SCH (08:20)
[2018-12-30 11:12] VITALS: BP 117/79; PULSE 87; TEMP 97.9
--- NOTE | 2018-12-30 11:58 | P.CRDCN ---
History of Present Illness History of present illness: This is Dr. Pinzon dictating an electrophysiology consult on this patient The patient was interviewed and examined by me IMPRESSION / ASSESSMENT: Typical atrial flutter with RVR now rate controlled By prostatic mitral valve Mitral valve disease Global hypokinesis/cardio myopathy , Atrial flutter Refractory to treatment PLAN: I did detailed discussion with the patient regarding the management of atrial flutter and discussed the role of medical treatment as well as efficacy ablation I would recommend an EP study radiofrequency ablation as a curative means Success rate 95% Long-term failure 85% Complications rate of 1%, including cardiac puncture admission electrical circuitry requiring permanent pacing, risk of stroke Continue anticoagulation with ELIQUIS rate patient instructed not to stop ELIQUIS HPI Patient presented with palpitations and some shortness of breath Found to be in atrial flutter Underwent electrical cardioversion after JENNIFER Dilated left atrium Global hypokinesis Stable Pipracil lipotropic prosthesis ROS: No fever chills or rigors, no cough, phlegm or expectoration, no nausea, vomiting or diarrhea, no hematuria, dysuria, no musculoskeletal complaints, no strokes or seizures, no skin lesions. EXAMINATION: REVIEW OF LABS, ECG & MEDICAL DATA Twelve-lead ECG from 2069 shows an atrial rhythm consistent with typical atrial flutter with average heart rates of 99 beats a minute with intermittent Abberent Conduction of the right bundle-branch block morphology JENNIFER shows a dilated left atrium, moderately impaired LV systolic function with global hypokinesis ejection fraction 40% Bioprosthetic mitral valve Mild to moderate tricuspid regurgitation Successful electrical cardioversion on 12/26/2018 for atrial flutter Hemoglobin 14.5 Sodium 139, potassium 4.2, BUN 18, creatinine 0.7, Normal troponins TSH 1.6 Past Medical History Past Medical History: Hypertension, Musculoskeletal Disorder Additional Past Medical History / Comment(s): . GOUT. SL VARICOSE VEINS. HX RT SHOULDER DISLOCATION. diverticultitis. History of Any Multi-Drug Resistant Organisms: None Reported Past Surgical History: Appendectomy, Cardiac Valve Replacement, Coronary Bypass/CABG, Orthopedic Surgery Additional Past Surgical History / Comment(s): RT KNEE SURGERY. EPID INJ IN BACK. LASIK EYE SURG., CABG-2014, MITRAL VALVE 2014 Past Anesthesia/Blood Transfusion Reactions: No Reported Reaction Past Psychological History: No Psychological Hx Reported Smoking Status: Never smoker Past Alcohol Use History: None Reported Past Drug Use History: None Reported - Past Family History Mother Family Medical History: Hypertension, Myocardial Infarction ([place]) Medications and Allergies Home Medications Medication Instructions Recorded Confirmed Type Febuxostat [Uloric] 40 mg PO DAILY 12/21/14 12/26/18 History Aspirin EC [Ecotrin Low Dose] 81 mg PO DAILY 11/18/17 12/26/18 History Atorvastatin Calcium [Lipitor] 40 mg PO DAILY 12/26/18 12/26/18 History Metoprolol Tartrate 25 mg PO HS 12/26/18 12/26/18 History Metoprolol Tartrate 50 mg PO QAM 12/26/18 12/26/18 History Allergies Allergy/AdvReac Type Severity Reaction Status Date / Time Penicillins AdvReac aches Verified 12/26/18 09:03 Physical Exam Vitals: Vital Signs Temp Pulse Resp BP Pulse Ox 12/30/18 11:11 97.9 F 87 18 117/79 97 12/30/18 10:59 132 H 12/30/18 08:00 97.8 F 132 H 18 105/69 95 12/30/18 04:20 97.9 F 57 L 16 96/58 97 12/30/18 00:30 97.9 F 64 16 105/55 98 12/29/18 20:25 97.9 F 66 12 124/75 97 12/29/18 12:00 70 Intake and Output 12/29/18 12/30/18 12/30/18 22:59 06:59 14:59 Intake Total 240 240 Output Total 275 350 Balance -35 -110 Intake: Oral 240 240 Output: Urine 275 350 Other: # Voids 1 Weight 125 kg Results 12/30/18 06:19 12/30/18 06:19 Coagulation 12/30/18 Range/Units 06:19 PT 11.6 (9.0-12.0) sec CBC 12/30/18 Range/Units 06:19 WBC 7.5 (3.8-10.6) k/uL RBC 4.81 (4.30-5.90) m/uL Hgb 14.5 (13.0-17.5) gm/dL Hct 43.3 (39.0-53.0) % Plt Count 185 (150-450) k/uL Comprehensive Metabolic Panel 12/30/18 Range/Units 06:19 Sodium 139 (137-145) mmol/L Potassium 4.2 (3.5-5.1) mmol/L Chloride 103 (98-107) mmol/L Carbon Dioxide 30 (22-30) mmol/L BUN 18 (9-20) mg/dL Creatinine 0.70 (0.66-1.25) mg/dL Glucose 119 H (74-99) mg/dL Calcium 9.1 (8.4-10.2) mg/dL Current Medications Generic Name Dose Route Start Last Admin Trade Name Liang PRN Reason Stop Dose Admin Allopurinol 200 mg 12/27/18 09:00 12/30/18 08:20 Zyloprim PO 200 mg DAILY KATE Administration Apixaban 5 mg 12/27/18 09:45 12/30/18 08:20 Eliquis PO 5 mg BID KATE Administration Aspirin 81 mg 12/28/18 09:00 12/30/18 08:19 Aspirin PO 81 mg DAILY KATE Administration Atorvastatin Calcium 40 mg 12/27/18 09:00 12/30/18 08:20 Lipitor PO 40 mg DAILY KATE Administration Furosemide 20 mg 12/27/18 18:00 12/30/18 08:20 Lasix PO 20 mg 0900,1800 KATE Administration Sodium Chloride 1,000 mls @ 20 mls/hr 12/29/18 07:45 12/30/18 07:43 Saline 0.9% IV Not Given .Q24H KATE Melatonin 3 mg 12/28/18 21:26 Melatonin PO HS PRN Insomnia Metoprolol Tartrate 50 mg 12/29/18 09:00 12/30/18 08:20 Lopressor PO 50 mg BID KATE Administration Miscellaneous Information 1 each 12/27/18 09:42 Magnesium Per Protocol MISCELLANE DAILY PRN Per Protocol Protocol Miscellaneous Information 1 each 12/27/18 09:41 Potassium Per Protocol MISCELLANE DAILY PRN Per Protocol Protocol Nitroglycerin 0.4 mg 12/26/18 12:22 Nitrostat SUBLINGUAL Q5M PRN Chest Pain Intake and Output 12/29/18 12/30/18 12/30/18 22:59 06:59 14:59 Intake Total 240 240 Output Total 275 350 Balance -35 -110 Intake: Oral 240 240 Output: Urine 275 350 Other: # Voids 1 Weight 125 kg 12/30/18 06:19 12/30/18 06:19
--- NOTE | 2018-12-30 12:31 | P.PN ---
Subjective Progress Note Date: 12/30/18 This is a 58-year-old gentleman who is status post mitral valve replacement and single bypass to the LAD. Patient does have history of hypertension, hyperlipidemia. He presented to the hospital on this admission with progressive dyspnea with associated cough, he was treated as an outpatient with antibiotics for possible bronchitis. Patient was found here to be in atrial flutter/fibrillation with rapid ventricular response. According the patient, he has noted himself to have palpitations off and on at home. He does drink Mountain Dew which has a lot of caffeine, he felt may be secondary to that. Patient also states that he had an echo cardiac gram with Doppler study performed last week at the office, he was asked during that time if he had any history of atrial fibrillation. The patient was seen in consultation by Dr. Kam, he was initiated on anticoagulation. Blood pressure 110/70 with a heart rate in the 100s this morning, 94% on room air. Continues to be in atrial fibrillation. He says states that overall his breathing is improved, but with exertion he still notices himself to be short of breath. His white blood cell count is 8.4, hemoglobin 16.3, platelet count 225. Sodium 140, potassium 4.0, BUN 17 and creatinine 0.8, magnesium 1.7 this morning. She was questioning this morning as to whether or not he could have his cardioversion while he is in the hospital, Dr. Kam did speak with them regarding cardioversion as an outpatient down the road. I did speak with Dr. Kam, JENNIFER will be scheduled tomorrow as well as elective cardioversion by Dr. Yodit Santa. The risks and the benefits were explained to the patient in detail. 12/30/2018 Patient was seen and examined this morning, he's been up ambulating in the laird without any difficulty. Converted back to atrial flutter. His heart rate is in the 70s to 80s. Dr. Pinzon was consulted to see the patient. Blood pressure 118/80, with a heart rate in the 80s, 97% on room air. White blood cell count 7.5, hemoglobin 14.5, platelet count 185. Sodium 139, potassium 4.2, BUN 18 and creatinine 0.7. TSH level normal at 1.5. Objective - Vital Signs Vital signs: Vital Signs Temp 97.9 F 12/30/18 11:11 Pulse 87 12/30/18 11:11 Resp 18 12/30/18 11:11 BP 117/79 12/30/18 11:11 Pulse Ox 97 12/30/18 11:11 Intake & Output 12/29/18 12/30/18 12/30/18 18:59 06:59 18:59 Intake Total 940 240 Output Total 325 275 350 Balance 615 -275 -110 Weight 125 kg Intake: IV 100 Oral 840 240 Output: Urine 325 275 350 Other: # Voids 1 1 - Exam PHYSICAL EXAMINATION: GENERAL: 58-year-old gentleman in no acute distress at the time of my examination HEENT: Head is atraumatic, normocephalic. Pupils equal, round. Sclera anicteric. Conjunctiva are clear. Mucous membranes of the mouth are moist. Neck is supple. There is no elevated jugular venous pressure. No carotid bruit is heard. HEART EXAMINATION: S1 and S2 irregularly irregular a systolic murmur is heard CHEST EXAMINATION: Lungs are clear to auscultation and precussion. No chest wall tenderness is noted on palpation or with deep breathing. ABDOMEN: Soft, nontender. Bowel sounds are heard. No organomegaly noted. EXTREMITIES: 2+ peripheral pulses with no evidence of peripheral edema and no calf tenderness noted. NEUROLOGIC patient is awake, alert and oriented 3 . . - Labs CBC & Chem 7: 12/30/18 06:19 12/30/18 06:19 Labs: Abnormal Lab Results - Last 24 Hours (Table) 12/30/18 Range/Units 06:19 Glucose 119 H (74-99) mg/dL Assessment and Plan Plan: Assessment and plan #1 atrial flutter/fibrillation, of recent onset, persistent status post JENNIFER and cardioversion yesterday, converted back to typical atrial flutter this morning #2 status post mitral valve replacement and single bypass in setting of mitral valve endocarditis and embolic phenomenon #3 hypertension #4 hyperlipidemia Plan Continue anticoagulation, consultation has been requested with Dr. Pinzon. Patient may be able to be discharged home today, follow-up appointment in the office with Dr. Yodit Santa. DNP note has been reviewed, I agree with a documented findings and plan of care. Patient was seen and examined.
--- NOTE | 2018-12-31 12:57 | CDI ---
Documentation Clarification Form Date: 12/31/2018 11:45:00 AM From: Moria Darby Briana Kwon, [place]der Hours-8:30 am & 5 pm M-F Admit Date: 12/26/2018 12:22:00 PM Patient Name: Lamont Ceron Visit Number: [id number] Discharge Date: 12/30/2018 2:50:00 PM ATTENTION: The Clinical Documentation Specialists (CDI) and [facility] Coding Staff appreciate your assistance in clarifying documentation. Please respond to the clarification below the line at the bottom and electronically sign. The CDI & [facility] Coding staff will review the response and follow-up if needed. Please note: Queries are made part of the Legal Health Record. If you have any questions, please contact the author of this message via ITS. Dr. Estuardo Santiago Acute CHF is documented in the H&P, PNs, ED History/Risk Factors: HTN, AFIB/AFlutter, Cardiomyopathy, Valve DS, Morbid Obesity BNP: 2310 Echocardiogram Results: Moderately impaired left ventricular systolic function, EF 40% Treatment: IV Lasix In your professional opinion, can you please clarify the type of CHF if known? Acute Systolic Acute Diastolic Acute Systolic/Diastolic combined Unable to Determine Other, please specify progress note modified/addendum MTDD
--- NOTE | 2019-01-01 11:50 | PN ---
PROGRESS NOTE ADDENDUM: DATE OF SERVICE: 12/29/2018 ASSESSMENT: Acute congestive heart failure from systolic dysfunction, ejection fraction 40%. MMODL / IJN: [id number] /
== END 2018-12-30 14:50 | disposition home or self-care (01) | DRG 308 ==
LOC: EC 08:35 → 3SCARD 12:22
PROVIDERS: ADMIT Hospitalist; ATTEND Hospitalist
PROC: 5A2204Z Restoration of Cardiac Rhythm, Single (ICD-10-PCS; principal; 2018-12-29 07:30)
PROC: B245ZZ4 Ultrasonography of Left Heart, Transesophageal (ICD-10-PCS; 2018-12-29 07:30)
DX: I48.0 Paroxysmal atrial fibrillation (principal); I50.21 Acute systolic (congestive) heart failure; Z68.41 Body mass index [BMI] 40.0-44.9, adult; J44.0 Chronic obstructive pulmonary disease with (acute) lower respiratory infection; I11.0 Hypertensive heart disease with heart failure; I42.9 Cardiomyopathy, unspecified; I07.1 Rheumatic tricuspid insufficiency; E66.01 Morbid (severe) obesity due to excess calories; I83.90 Asymptomatic varicose veins of unspecified lower extremity; M1A.9XX0 Chronic gout, unspecified, without tophus (tophi); J20.8 Acute bronchitis due to other specified organisms; E78.5 Hyperlipidemia, unspecified; K57.30 Diverticulosis of large intestine without perforation or abscess without bleeding; I48.3 Typical atrial flutter; Z79.899 Other long term (current) drug therapy; Z79.82 Long term (current) use of aspirin; Z95.2 Presence of prosthetic heart valve; Z95.1 Presence of aortocoronary bypass graft; Z90.49 Acquired absence of other specified parts of digestive tract; Z86.79 Personal history of other diseases of the circulatory system; Z88.0 Allergy status to penicillin; Z82.49 Family history of ischemic heart disease and other diseases of the circulatory system
CPT/HCPCS: 36415; 71046; 80048; 80053; 80061; 82550; 83735; 83880; 84443; 84484; 85025; 85379; 85610; 85730; 87502; 92960; 93005; 93312; 93320; 93325; 94760; 96365; 96375; 99285

== ENCOUNTER 2019-02-08 12:42 | Day surgery (SDC) | payer BC ==
[2019-02-08] MEDS: SODIUM CHLORIDE 0.9% 1,000 ML IV SCH (13:15)
[2019-02-08 13:21] LABS: Basophils % (A) 1 %; Eosinophils # (A) 0.2 k/uL (0-0.7); Eosinophils % (A) 3 %; HCT 43.2 % (39.0-53.0); HGB 14.8 gm/dL (13.0-17.5); Lymphocytes # (A) 1.7 k/uL (1.0-4.8); Lymphocytes % (A) 22 %; MCHC 34.2 g/dL (31.0-37.0); MCV 90.6 fL (80.0-100.0); Mean Platelet Volume 7.5; Monocytes # (A) 0.4 k/uL (0-1.0); Monocytes % (A) 5 %; Neutrophils # (A) 5.3 k/uL (1.3-7.7); Neutrophils % (A) 68 %; Platelet Count 204 k/uL (150-450); RBC 4.77 m/uL (4.30-5.90); RDW 14.1 % (11.5-15.5); WBC 7.8 k/uL (3.8-10.6)
[2019-02-08 13:38] LABS: African American GFR (CKD) >90 (>60 ml/min/1.73 sqM); Anion Gap 7 mmol/L; Blood Urea Nitrogen 16 mg/dL (9-20); Calcium 9.3 mg/dL (8.4-10.2); Carbon Dioxide 29 mmol/L (22-30); Chloride 105 mmol/L (98-107); Glucose 113 mg/dL (74-99); Sodium 141 mmol/L (137-145)
[2019-02-08] MEDS ORDERED: GLYCOPYRROLATE 0.2 MG/ML 2 ML VIAL ONE (15:31)
[2019-02-08] MEDS ORDERED: PHENYLEPHRINE-0.9% NACL SYG 1 MG/10 ML SYRINGE ONE (15:31)
[2019-02-08] MEDS ORDERED: ONDANSETRON 4 MG/2 ML VIAL ONE (15:31)
[2019-02-08] MEDS ORDERED: NEOSTIGMINE 1 MG/ML 10 ML VIAL ONE (15:31)
[2019-02-08] MEDS ORDERED: SUCCINYLCHOLINE CHLORIDE 100 MG/5 ML SYR IV ONE (15:31)
[2019-02-08] MEDS ORDERED: MIDAZOLAM 2 MG/2 ML VIAL ONE (15:31)
[2019-02-08] MEDS ORDERED: CLINDAMYCIN 150 MG/ML 6 ML VIAL ONE (15:31)
[2019-02-08] MEDS ORDERED: ROCURONIUM BROMIDE 10 MG/ML 10 ML VIAL IV ONE (15:31)
[2019-02-08] MEDS ORDERED: fentaNYL (PF) 50 MCG/ML 2 ML AMP ONE (15:31)
[2019-02-08] MEDS ORDERED: PROPOFOL 10 MG/ML 20 ML VIAL IV ONE (15:31)
[2019-02-08] MEDS ORDERED: LIDOCAINE 1% INJ 10MG/ML (20 ML MDV) ONE ×2 (15:31→15:37)
[2019-02-08] MEDS ORDERED: LIDOCAINE 1% INJ 10MG/ML (20 ML MDV) SQ ONE (16:10)
[2019-02-08] MEDS ORDERED: HEPARIN SODIUM (1,000 UNIT/ML) 1,000 UNIT in SODIUM CHLORIDE 0.9% 1,000 ML IRRIGATION ONE (16:12)
[2019-02-08] MEDS ORDERED: ACETAMINOPHEN TAB 325 MG TAB PO PRN (18:01)
[2019-02-08] MEDS ORDERED: ACETAMINOPHEN IV (For NPO) 1,000 MG in EMPTY BAG 1 BAG IVPB ONE (18:01)
[2019-02-08] MEDS ORDERED: HYDROcodone/APAP 5-325MG 1 EACH TAB PO PRN (18:01)
--- NOTE | 2019-02-08 18:53 | PCN ---
PROCEDURE NOTE 58-year-old male patient with a history of atrial flutter, symptomatic, with congestive heart failure. He required electrical cardioversion for symptomatic improvement. Subsequently went back into atrial flutter. He is brought in for EP study and radiofrequency ablation. The patient was in sinus rhythm at the start of the study. Procedure performed under general anesthesia. IV antibiotics were administered. Venous sheaths were placed in the right femoral vein and via these diagnostic and mapping ablation catheter placed. Intracardiac echo catheter was placed. Sinus cycle length at 600 and 500 milliseconds were 725 and 1282 milliseconds. AV node Wenckebach block 390 milliseconds, VA Wenckebach block 520 milliseconds, atrial extrastimulation of the coronary sinus from the high right atrium was performed. Right bundle branch block aberrancy was noted with pacing, high-dose Isuprel was used. No atrial fibrillation was induced. No other SVT was induced. The baseline measurements were as follows: Sinus cycle 1020 milliseconds, MD interval 176 milliseconds, QRS 103 milliseconds, QT 461 milliseconds. AH interval 86 milliseconds, HV interval 44 milliseconds. 3D electro anatomic mapping of the right atrium was performed. Cava tricuspid isthmus was mapped. Intracardiac echocardiography was performed. An anatomic mapping of the acute tricuspid isthmus was performed. The isthmus was short but it was saucer shaped with a pouch and in the mid isthmus. In addition, thick trabeculation was noted laterally. Therefore, the lateral aspect was avoided. RF ablation was performed successfully. Good contact force and power was used up to 30 kam. RF ablation line was made and this was anatomically completed. The line was interrogated with pacing maneuvers. High output pacing was performed to document non capture along the line. Split potentials were noted and were greater than 140 milliseconds along the line. Differential pacing was performed and a bidirectional block was proven. The patient tolerated the procedure well without any acute complications. Sheaths were removed. Hemostasis was assured. IMPRESSION: Typical atrial flutter symptomatic with precipitation of congestive heart failure, recurrent atrial flutter despite electrical cardioversion, successful mapping and ablation for atrial flutter. No other arrhythmias induced. PLAN: Continue apixaban. Continue cardiac medications. Follow with Dr. Santa in 1-2 weeks. MMODL / IJN: [id number] /
--- NOTE | 2019-02-08 18:58 | LTR ---
DATE OF SERVICE: 02/08/2019 Dear Dionicio: I had the pleasure of seeing Lamont Ceron in electrophysiology in followup. Lamont had symptomatic atrial flutter, which precipitated congestive heart failure. Despite electrical cardioversion, he went back into atrial flutter once again. Therefore, he is brought into the EP lab for an EP study and radiofrequency ablation of atrial flutter. Successful radiofrequency ablation of atrial flutter was performed and bidirectional block was proven. He should continue Eliquis and all his other cardiac medications. Follow up with you and Dr. Santa as before. Thank you for entrusting us in the care of your patient. Warm regards, Sincerely, MMODL / IJN: [id number] /
[2019-02-08] MEDS: APIXABAN 5 MG TAB PO SCH (20:10)
[2019-02-08] MEDS: METOPROLOL TARTRATE 50 MG TAB PO SCH (20:10)
[2019-02-08] MEDS ORDERED: ATORVASTATIN 40 MG TAB PO SCH (21:00)
[2019-02-09] MEDS: SODIUM CHLORIDE 0.9% 1,000 ML IV SCH (03:59)
[2019-02-09 07:53] VITALS: RESP 18
[2019-02-09] MEDS: METOPROLOL TARTRATE 50 MG TAB PO SCH (08:20)
[2019-02-09] MEDS: APIXABAN 5 MG TAB PO SCH (08:20)
[2019-02-09] MEDS ORDERED: ASPIRIN 81 MG PO SCH (09:00)
[2019-02-09] MEDS ORDERED: FUROSEMIDE 20 MG TAB PO SCH (09:00)
[2019-02-09] MEDS ORDERED: TAMSULOSIN 0.4 MG CAP.ER.24H PO STA (09:52)
--- NOTE | 2019-02-09 11:47 | P.DS ---
Providers Attending physician: Mohan Pinzon Primary care physician: Dionicio [facility] Hospital Course: Patient is doing well. No chest discomfort dizziness lightheadedness or palpitations Mildly tender groin but no hematoma no swelling. And bleeding in the hallways comfortably Blood pressure 111/55 mmHg also in the 50s, afebrile 98.5F Breath sounds are clear no rhonchi no crackles Heart sounds are normal no murmurs or gallops. Abdomen soft Extended is warm no edema No hematoma in the right groin no swelling Impression Recurrent paroxysmal atrial flutter, symptomatic with heart failure symptoms Mitral valve disease status post mitral replacement Patient go home after successful atrial flutter ablation Suggest Patient go home today after successful atrial flutter ablation Follow-up with Dr. Santa within the next week or 2 Continue anticoagulation Plan - Discharge Summary Discharge Rx Participant: No New Discharge Prescriptions: Continue Febuxostat [Uloric] 40 mg PO DAILY Aspirin EC [Ecotrin Low Dose] 81 mg PO DAILY Atorvastatin Calcium [Lipitor] 40 mg PO HS Apixaban [Eliquis] 5 mg PO BID #60 tab Metoprolol Tartrate [Lopressor] 50 mg PO BID #60 tab Ascorbic Acid [Vitamin C] 1 tab PO DAILY Furosemide [Lasix] 20 mg PO DAILY Discharge Medication List Febuxostat [Uloric] 40 mg PO DAILY 12/21/14 [History] Aspirin EC [Ecotrin Low Dose] 81 mg PO DAILY 11/18/17 [History] Atorvastatin Calcium [Lipitor] 40 mg PO HS 12/26/18 [History] Apixaban [Eliquis] 5 mg PO BID #60 tab 12/30/18 [Rx] Metoprolol Tartrate [Lopressor] 50 mg PO BID #60 tab 12/30/18 [Rx] Ascorbic Acid [Vitamin C] 1 tab PO DAILY 02/02/19 [History] Furosemide [Lasix] 20 mg PO DAILY 02/08/19 [History] Follow up Appointment(s)/Referral(s): Trini Santa MD [STAFF PHYSICIAN] - 2 Weeks (Follow Dr. Santa within 1-2 weeks continue apixaban) Activity/Diet/Wound Care/Special Instructions: Post EP study - Ablation instructions 1. Keep access sites dry for 2 days. 2. No heavy lifting or straining for 2 days. 3. Avoid bending the hips repeatedly for 2 days. 4. You may go up and down stairs slowly Call if the following is noted 1. Bleeding, increasing swelling or pain at the access sites. 2. Increasing chest discomfort, especially upon taking a deep breath. 3. Increasing shortness of breath, at rest or with exertion. 4. Undue cough / phlegm 5. Difficulty or pain while swallowing. 6. Pain or change in color in the extremities. 7. Fever, chills, rigors. 8. Increasing headache or neurologic symptoms. 9. Dizziness, fainting, palpitations Continue ELIQUIS continue current medications Follow Dr. Santa within 1-2 weeks
[2019-02-09 12:22] VITALS: BP 123/75; PULSE 51; TEMP 97.5
== END 2019-02-09 15:20 | disposition home or self-care (01) ==
LOC: CATHEP 12:42 → 1SOBS 18:07 → CATHEP 02-09 15:20
PROVIDERS: ATTEND Internal Medicine Clinical Cardiac Electrophysiology
DX: I48.3 Typical atrial flutter (principal); I25.10 Atherosclerotic heart disease of native coronary artery without angina pectoris; I11.0 Hypertensive heart disease with heart failure; I50.9 Heart failure, unspecified; Z82.49 Family history of ischemic heart disease and other diseases of the circulatory system; Z95.1 Presence of aortocoronary bypass graft; Z95.2 Presence of prosthetic heart valve; Z79.01 Long term (current) use of anticoagulants; Z79.82 Long term (current) use of aspirin; Z79.899 Other long term (current) drug therapy; Z88.0 Allergy status to penicillin
CPT/HCPCS: 93623; 93662; 93613; 93653; 80048; 85025; C1894; C1769 ×2; C1730 ×2; C1759; C1893; C1732; J2250; J2710; J2405; J2001; J3010; J1644; J0131; J2370; J0330; J2704

== ENCOUNTER 2022-05-15 17:57 | Emergency (ER) | payer BC ==
[2022-05-15 18:22] VITALS: RESP 16
[2022-05-15] MEDS ORDERED: METOCLOPRAMIDE 5 MG/ML 2 ML VIAL IVP STA (21:03)
[2022-05-15] MEDS ORDERED: SODIUM CHLORIDE 0.9% 1,000 ML IV STA (21:03)
[2022-05-15 22:50] LABS: Basophils # (A) 0.1 k/uL (0-0.2); Basophils % (A) 1 %; Eosinophils # (A) 0.2 k/uL (0-0.7); Eosinophils % (A) 2 %; HCT 49.6 % (39.0-53.0); HGB 16.5 gm/dL (13.0-17.5); Lymphocytes # (A) 1.2 k/uL (1.0-4.8); Lymphocytes % (A) 11 %; MCH 30.9 pg (25.0-35.0); MCHC 33.3 g/dL (31.0-37.0); Mean Platelet Volume 7.8; Monocytes # (A) 0.6 k/uL (0-1.0); Monocytes % (A) 5 %; Neutrophils # (A) 8.6 k/uL (1.3-7.7); Neutrophils % (A) 80 %; Platelet Count 200 k/uL (150-450); RBC 5.34 m/uL (4.30-5.90); RDW 13.4 % (11.5-15.5); WBC 10.8 k/uL (3.8-10.6)
--- NOTE | 2022-05-15 23:12 | CT ---
EXAM: CT Abdomen and Pelvis With Intravenous Contrast CLINICAL HISTORY: ITS.REASON CT Reason: LLQ pain TECHNIQUE: Axial computed tomography images of the abdomen and pelvis with intravenous contrast. CTDI is 44.9 mGy and DLP is 2093.2 mGy-cm. This CT exam was performed using one or more of the following dose reduction techniques: automated exposure control, adjustment of the mA and/or kV according to patient size, and/or use of iterative reconstruction technique. COMPARISON: 09/30/2018. FINDINGS: Lung bases: Minimal subsegmental atelectasis is noted at the lung bases. Heart: Heart is normal in size. ABDOMEN: Liver: Diffuse fatty infiltration of the liver is noted. A 1 cm rapidly enhancing lesion in the right lobe of liver near the dome of the liver is noted seen on series 201 image 8 of uncertain etiology. Gallbladder and bile ducts: See below. Pancreas: See below. Spleen: Spleen enhance uniformly. Adrenals: The adrenal gland, the head, body, tail of the pancreas and the gallbladder are unremarkable. Kidneys and ureters: 0.3 cm nonobstructing calculus mid pole region of the right kidney. Moderate left hydronephrosis. Moderate proximal left hydroureter. 0.6 cm obstructing calculus at the junction of the proximal the mid left ureter seen on coronal image 63. Stomach and bowel: Moderate quantity of ingested material in the stomach. Moderate quantity of stool throughout the colon. Diverticulosis without diverticulitis. No obstruction. PELVIS: Appendix: Status post appendectomy. Bladder: Bladder is unremarkable. Reproductive: Heterogeneous and enlarged prostate gland. ABDOMEN and PELVIS: Intraperitoneal space: Unremarkable. No free air. No significant fluid collection. Bones/joints: No spondylolysis. No acute fracture. No dislocation. Soft tissues: Unremarkable. Vasculature: Portal vein is patent. Atherosclerotic disease of the abdominal aorta without change in caliber. Flow is noted within the celiac, SMA, the renal arteries, and RADHA. No abdominal aortic aneurysm. Lymph nodes: No retroperitoneal lymphadenopathy. IMPRESSION: 1. There is a 0.6 cm obstructing calculus at the junction of the proximal the mid left ureter causing left hydronephrosis. 2. 1 cm rapidly enhancing lesion at the dome of the right lobe of the liver of uncertain etiology. MRI imaging may provide additional information as deemed necessary. 3. Gallbladder is unremarkable. 4. No hydronephrosis of the right kidney. 5. No bowel obstruction.
[2022-05-15] MEDS ORDERED: SODIUM CHLORIDE 0.9% 1,000 ML IV ONE (23:26)
[2022-05-15] MEDS ORDERED: HYDROmorphone 1 MG/ML 1 ML SYRINGE IVP STA (23:33)
--- NOTE | 2022-05-16 00:31 | ED ---
Abdominal Pain HPI - General Source: patient Mode of arrival: ambulatory Limitations: no limitations <Timmy Rojas - Last Filed: 05/16/22 00:19> - General Source: RN notes reviewed, old records reviewed <Clemente Badillo Jerrell - Last Filed: 05/16/22 01:53> - General Chief Complaint: Abdominal Pain Stated Complaint: diverticulitis Time Seen by Provider: 05/15/22 20:29 - History of Present Illness Initial Comments: Patient is a 7-year-old male presenting with chief complaint of left lower quadrant pain. Patient states pain has been ongoing for the last few days. States that the pain wraps around to the front of his abdomen, he admits to nausea no vomiting. Patient states this pain feels similar to when he had diverticulitis. He denies any diarrhea, hematochezia, melena, fever, chills, dysuria, hematuria. Admits to urgency and frequency. (Timmy Rojas) - Related Data Home Medications Medication Instructions Recorded Confirmed Febuxostat [Uloric] 40 mg PO DAILY 12/21/14 02/08/19 Aspirin EC [Ecotrin Low Dose] 81 mg PO DAILY 11/18/17 02/08/19 Atorvastatin Calcium [Lipitor] 40 mg PO HS 12/26/18 02/08/19 Ascorbic Acid [Vitamin C] 1 tab PO DAILY 02/02/19 02/08/19 Furosemide [Lasix] 20 mg PO DAILY 02/08/19 02/08/19 Previous Rx's Medication Instructions Recorded Apixaban [Eliquis] 5 mg PO BID #60 tab 12/30/18 Metoprolol Tartrate [Lopressor] 50 mg PO BID #60 tab 12/30/18 HYDROcodone/APAP 5-325MG [[place] 1 tab PO Q6HR PRN #12 tab 05/16/22 5-325] Ibuprofen [Motrin] 600 mg PO Q8HR PRN #24 tab 05/16/22 Allergies Allergy/AdvReac Type Severity Reaction Status Date / Time shrimp Allergy Unknown Verified 05/15/22 18:22 Penicillins AdvReac aches Verified 05/15/22 18:22 Review of Systems ROS Other: All systems not noted in ROS Statement are negative. <Timmy Rojas - Last Filed: 05/16/22 00:19> ROS Other: All systems not noted in ROS Statement are negative. <Clemente Badillo Jerrell - Last Filed: 05/16/22 01:53> ROS Statement: Those systems with pertinent positive or pertinent negative responses have been documented in the HPI. Past Medical History Past Medical History: Hypertension, Musculoskeletal Disorder Additional Past Medical History / Comment(s): SEE DR. FRAUSTO'S NOTE FOR CARDIOVASCULAR DETAILS. GOUT. SL VARICOSE VEINS. HX RT SHOULDER DISLOCATION. diverticultitis. History of Any Multi-Drug Resistant Organisms: None Reported Past Surgical History: Appendectomy, Cardiac Valve Replacement, Coronary Bypass/CABG, Orthopedic Surgery Additional Past Surgical History / Comment(s): November 2018 cardioversion. RT KNEE SURGERY. EPID INJ IN BACK. LASIK EYE SURG., CABG-2014, MITRAL VALVE 2014 Past Anesthesia/Blood Transfusion Reactions: No Reported Reaction Past Psychological History: No Psychological Hx Reported Smoking Status: Never smoker Past Alcohol Use History: None Reported Past Drug Use History: None Reported - Past Family History Mother Family Medical History: Hypertension, Myocardial Infarction ([place]) <Timmy Rojas - Last Filed: 05/16/22 00:19> General Exam Limitations: no limitations General appearance: alert, in no apparent distress Head exam: Present: atraumatic, normocephalic, normal inspection Eye exam: Present: normal appearance, EOMI. Absent: scleral icterus, periorbital swelling Neck exam: Present: normal inspection Respiratory exam: Present: normal lung sounds bilaterally. Absent: respiratory distress, wheezes, rales, rhonchi, stridor Cardiovascular Exam: Present: regular rate, normal rhythm, normal heart sounds. Absent: systolic murmur, diastolic murmur, rubs, gallop, clicks GI/Abdominal exam: Present: soft, tenderness. Absent: distended, guarding, rebound, rigid Neurological exam: Present: alert, oriented X3, CN II-XII intact Psychiatric exam: Present: normal affect, normal mood Skin exam: Present: warm, dry, intact, normal color. Absent: rash <Timmy Rojas - Last Filed: 05/16/22 00:19> Course <NikolaimaryshaunClemente Jerrell - Last Filed: 05/16/22 01:53> Vital Signs 05/15/22 05/15/22 05/16/22 18:20 23:00 00:00 Temperature 98.5 F 98.1 F Pulse Rate 57 L 91 89 Respiratory 16 16 Rate Blood Pressure 161/79 180/70 158/74 O2 Sat by Pulse 96 97 Oximetry - Reevaluation(s) Reevaluation #1: 05/16/22 01:11 patient reevaluated, resting comfortably, pain nearly completely resolved. No fever no vomiting. (Clemente Badillo) Medical Decision Making - Lab Data Result diagrams: 05/15/22 22:39 <Timmy Rojas - Last Filed: 05/16/22 00:19> - Lab Data Result diagrams: 05/15/22 22:39 05/15/22 23:50 <Clemente Badillo - Last Filed: 05/16/22 01:53> - Medical Decision Making Patient is a 61 y/o male presenting with CC of LLQ pain. Admits to nause no vomitting. On examination there is tenderness to palpation over the LLQ. WBC 10.8. Hemoglobin 16.5. Lactic acid 2.0. CT shows a 6 mm obstructing calculus at the junction of the proximal and mid left ureter causing left hydronephrosis. There is also incidental finding of 1 cm rapidly enhancing lesion at the dome of the right lobe of the liver of uncertain etiology. Patient received pain medication, Zofran and lungs. The patient reports improvement in pain on reassessment. (Timmy Rojas) patient's pain is controlled. There is an uncertain lesion in the liver which will require follow-up and he should follow-up with urology tomorrow for evaluation of this obstructing stone. He is currently on Flomax, pain medica tion prescribed. (Clemente Badillo) - Lab Data Lab Results 05/15/22 05/15/22 05/15/22 Range/Units 22:39 22:39 23:50 WBC 10.8 H (3.8-10.6) k/uL RBC 5.34 (4.30-5.90) m/uL Hgb 16.5 (13.0-17.5) gm/dL Hct 49.6 (39.0-53.0) % MCV 93.0 (80.0-100.0) fL MCH 30.9 (25.0-35.0) pg MCHC 33.3 (31.0-37.0) g/dL RDW 13.4 (11.5-15.5) % Plt Count 200 (150-450) k/uL MPV 7.8 Neutrophils % 80 % Lymphocytes % 11 % Monocytes % 5 % Eosinophils % 2 % Basophils % 1 % Neutrophils # 8.6 H (1.3-7.7) k/uL Lymphocytes # 1.2 (1.0-4.8) k/uL Monocytes # 0.6 (0-1.0) k/uL Eosinophils # 0.2 (0-0.7) k/uL Basophils # 0.1 (0-0.2) k/uL Sodium 136 L (137-145) mmol/L Potassium 4.5 (3.5-5.1) mmol/L Chloride 100 (98-107) mmol/L Carbon Dioxide 23 (22-30) mmol/L Anion Gap 13 mmol/L BUN 11 (9-20) mg/dL Creatinine 0.89 (0.66-1.25) mg/dL Est GFR (CKD-EPI)AfAm >90 (>60 ml/min/1.73 sqM) Est GFR (CKD-EPI)NonAf >90 (>60 ml/min/1.73 sqM) Glucose 154 H (74-99) mg/dL Plasma Lactic Acid Elliott 2.0 (0.7-2.0) mmol/L Calcium 9.5 (8.4-10.2) mg/dL Total Bilirubin 1.5 H (0.2-1.3) mg/dL AST 42 (17-59) U/L ALT 43 (4-49) U/L Alkaline Phosphatase 70 (38-126) U/L Total Protein 7.0 (6.3-8.2) g/dL Albumin 4.4 (3.5-5.0) g/dL Amylase 72 (30-110) U/L Lipase 67 (23-300) U/L Urine Color Urine Appearance (Clear) Urine pH (5.0-8.0) Ur Specific [place] (1.001-1.035) Urine Protein (Negative) Urine Glucose (UA) (Negative) Urine Ketones (Negative) Urine Blood (Negative) Urine Nitrite (Negative) Urine Bilirubin (Negative) Urine Urobilinogen (<2.0) mg/dL Ur Leukocyte Esterase (Negative) 05/16/22 Range/Units 01:00 WBC (3.8-10.6) k/uL RBC (4.30-5.90) m/uL Hgb (13.0-17.5) gm/dL Hct (39.0-53.0) % MCV (80.0-100.0) fL MCH (25.0-35.0) pg MCHC (31.0-37.0) g/dL RDW (11.5-15.5) % Plt Count (150-450) k/uL MPV Neutrophils % % Lymphocytes % % Monocytes % % Eosinophils % % Basophils % % Neutrophils # (1.3-7.7) k/uL Lymphocytes # (1.0-4.8) k/uL Monocytes # (0-1.0) k/uL Eosinophils # (0-0.7) k/uL Basophils # (0-0.2) k/uL Sodium (137-145) mmol/L Potassium (3.5-5.1) mmol/L Chloride (98-107) mmol/L Carbon Dioxide (22-30) mmol/L Anion Gap mmol/L BUN (9-20) mg/dL Creatinine (0.66-1.25) mg/dL Est GFR (CKD-EPI)AfAm (>60 ml/min/1.73 sqM) Est GFR (CKD-EPI)NonAf (>60 ml/min/1.73 sqM) Glucose (74-99) mg/dL Plasma Lactic Acid Elliott (0.7-2.0) mmol/L Calcium (8.4-10.2) mg/dL Total Bilirubin (0.2-1.3) mg/dL AST (17-59) U/L ALT (4-49) U/L Alkaline Phosphatase (38-126) U/L Total Protein (6.3-8.2) g/dL Albumin (3.5-5.0) g/dL Amylase (30-110) U/L Lipase (23-300) U/L Urine Color Light Yellow Urine Appearance Clear (Clear) Urine pH 6.0 (5.0-8.0) Ur Specific [place] 1.046 H (1.001-1.035) Urine Protein Negative (Negative) Urine Glucose (UA) Negative (Negative) Urine Ketones 1+ H (Negative) Urine Blood Negative (Negative) Urine Nitrite Negative (Negative) Urine Bilirubin Negative (Negative) Urine Urobilinogen <2.0 (<2.0) mg/dL Ur Leukocyte Esterase Negative (Negative) Disposition <Timmy Rojas - Last Filed: 05/16/22 00:19> Is patient prescribed a controlled substance at d/c from ED?: No Time of Disposition: 01:13 <Clemente Badillo - Last Filed: 05/16/22 01:53> Clinical Impression: Calculus of kidney, Hydronephrosis with renal calculous obstruction Disposition: HOME SELF-CARE Condition: Good Instructions (If sedation given, give patient instructions): Kidney Stones (ED), Renal Colic (ED) Prescriptions: Ibuprofen [Motrin] 600 mg PO Q8HR PRN #24 tab PRN Reason: Pain HYDROcodone/APAP 5-325MG [[place] 5-325] 1 tab PO Q6HR PRN #12 tab PRN Reason: Pain Referrals: Dionicio Holguin DO [Primary Care Provider] - 1-2 days Santosh Clements MD [STAFF PHYSICIAN] - 1-2 days
[2022-05-16 00:51] LABS: ALT 43 U/L (4-49); AST 42 U/L (17-59); African American GFR (CKD) >90 (>60 ml/min/1.73 sqM); Albumin 4.4 g/dL (3.5-5.0); Alkaline Phosphatase 70 U/L (38-126); Amylase 72 U/L (30-110); Anion Gap 13 mmol/L; Blood Urea Nitrogen 11 mg/dL (9-20); Calcium 9.5 mg/dL (8.4-10.2); Carbon Dioxide 23 mmol/L (22-30); Chloride 100 mmol/L (98-107); Glucose 154 mg/dL (74-99); Lipase 67 U/L (23-300); Non-African American GFR(CKD) >90 (>60 ml/min/1.73 sqM); Potassium 4.5 mmol/L (3.5-5.1); Sodium 136 mmol/L (137-145); Total Bilirubin 1.5 mg/dL (0.2-1.3)
[2022-05-16] MEDS ORDERED: KETOROLAC 15 MG/ML 1 ML VIAL IVP STA (00:56)
[2022-05-16 01:09] VITALS: TEMP 98.1
[2022-05-16 01:10] VITALS: BP 158/74; PULSE 89
[2022-05-16 01:16] LABS: Appearance,Urine Clear (Clear); Bilirubin,Urine Negative (Negative); Blood,Urine Negative (Negative); Color,Urine Light Yellow; Glucose,Urine (UA) Negative (Negative); Ketones,Urine 1+ (Negative); Leukocyte Esterase,Urine Negative (Negative); Nitrite,Urine Negative (Negative); Protein,Urine Negative (Negative); Urobilinogen,Urine <2.0 mg/dL (<2.0)
[2022-05-16 01:49] LABS: Specific Gravity,Urine 1.046 (1.001-1.035)
== END 2022-05-16 01:58 | disposition home or self-care (01) ==
LOC: EC 17:57
DX: N13.2 Hydronephrosis with renal and ureteral calculous obstruction (principal); I10 Essential (primary) hypertension; Z82.49 Family history of ischemic heart disease and other diseases of the circulatory system; Z91.013 Allergy to seafood; Z88.0 Allergy status to penicillin
CPT/HCPCS: 99284 ×2; 96374 ×2; 96375 ×3; 96361 ×2; 36415; 80053; 82150; 83605; 83690; 85025; 81003; 74177; J2765; J1170; J1885; Q9967

== ENCOUNTER → 2022-06-04 | Outpatient (CLI) | payer BC ==
[2022-06-04 15:43] LABS: Appearance,Urine Clear (Clear); Bilirubin,Urine Negative (Negative); Blood,Urine Negative (Negative); Color,Urine Yellow (Yellow); Ketones,Urine Trace mg/dL (Negative); Nitrite,Urine Negative (Negative); Specific Gravity,Urine 1.024 (1.001-1.030); Urobilinogen,Urine 0.2 (0.2,1.0)
[2022-06-04 16:16] LABS: Basophils # (A) 0.03 X 10*3/uL (0.00-0.10); Basophils % (A) 0.5 %; Eosinophils # (A) 0.29 X 10*3/uL (0.04-0.35); Eosinophils % (A) 4.8 %; HCT 42.9 % (39.6-50.0); HGB 14.4 g/dL (13.0-17.0); Immature Grans, Automated 0.5 %; Lymphocytes % (A) 21.7 %; MCH 31.4 pg (27.0-32.0); MCHC 33.6 g/dL (32.0-37.0); MCV 93.7 fL (80.0-97.0); Monocytes % (A) 6.7 %; NRBC Per 100 WBC 0 /100 WBCS (0.0-0.0); Neutrophils # (A) 3.94 X 10*3/uL (1.80-7.70); Neutrophils % (A) 65.8 %; Platelet Count 233 X 10*3/uL (140-440); RBC 4.58 X 10*6/uL (4.40-5.60); RDW 13.1 % (11.5-14.5); WBC 5.99 X 10*3/uL (4.50-10.00)
[2022-06-04 16:24] LABS: African American GFR (CKD) 112.9 (60.0-200.0); Anion Gap 11.2 mmol/L (10.00-18.00); BUN/Creat Ratio 18.54 Ratio (12.00-20.00); Blood Urea Nitrogen 14.7 mg/dL (9.0-27.0); Calcium 9.1 mg/dL (8.7-10.3); Carbon Dioxide 26.4 mmol/L (20.0-27.5); Non-African American GFR(CKD) 97.5 (60.0-200.0); Potassium 4.3 mmol/L (3.5-5.5)
== END | disposition home or self-care (01) ==
LOC: LABPAT 08:38
PROVIDERS: ATTEND Urology
DX: Z01.812 Encounter for preprocedural laboratory examination (principal); N20.1 Calculus of ureter
CPT/HCPCS: 80048; 81003; 85025

== ENCOUNTER 2022-06-12 09:28 | Day surgery (SDC) | payer BC ==
--- NOTE | 2022-06-11 20:25 | P.GSHP ---
History of Present Illness H&P Date: 06/11/22 61 yo male with a painful, 6mm stone in the left mid ureter who comes for a left ureteroscopy with laser lithotripsy and possible stent. - Constitutional Constitutional: Denies chills, Denies fever - EENT Eyes: denies blurred vision, denies pain Ears, nose, mouth and throat: Denies headache, Denies sore throat - Cardiovascular Cardiovascular: Denies chest pain, Denies shortness of breath - Respiratory Respiratory: Denies cough, Denies 7 - Gastrointestinal Gastrointestinal: Denies abdominal pain, Denies diarrhea, Denies nausea, Denies vomiting - Genitourinary (Female) Genitourinary: Denies dysuria, Denies hematuria - Genitourinary (Male) Genitourinary: Denies dysuria, Denies hematuria - Musculoskeletal Musculoskeletal: Denies myalgias - Integumentary Integumentary: Denies pruritus, Denies rash - Neurological Neurological: Denies numbness, Denies weakness - Psychiatric Psychiatric: Denies anxiety, Denies depression - Endocrine Endocrine: Denies fatigue, Denies weight change Past Medical History Past Medical History: Hyperlipidemia, Hypertension, Musculoskeletal Disorder Additional Past Medical History / Comment(s): SEE DR. FRAUSTO'S NOTE FOR CARDIOVASCULAR DETAILS. GOUT. SL VARICOSE VEINS. HX RT SHOULDER DISLOCATION. diverticultitis. kidney stones. enlarged prostate. History of Any Multi-Drug Resistant Organisms: None Reported Past Surgical History: Appendectomy, Cardiac Valve Replacement, Coronary Bypass/CABG, Orthopedic Surgery Additional Past Surgical History / Comment(s): November 2018 cardioversion. RT KNEE SURGERY scraped. EPID INJ IN BACK. LASIK EYE SURG., CABG-2014, MITRAL VALVE 2014 Past Anesthesia/Blood Transfusion Reactions: No Reported Reaction Smoking Status: Never smoker - Past Family History Mother Family Medical History: Hypertension, Myocardial Infarction ([place]) Father Family Medical History: No Reported History Medications and Allergies Home Medications Medication Instructions Recorded Confirmed Type Febuxostat [Uloric] 40 mg PO DAILY 12/21/14 06/11/22 History Aspirin EC [Ecotrin Low Dose] 81 mg PO DAILY 11/18/17 06/11/22 History Atorvastatin Calcium [Lipitor] 40 mg PO HS 12/26/18 06/11/22 History Apixaban [Eliquis] 5 mg PO BID #60 tab 12/30/18 06/11/22 Rx Ascorbic Acid [Vitamin C] 1 tab PO DAILY 02/02/19 06/11/22 History Ibuprofen [Motrin] 600 mg PO Q8HR PRN #24 tab 05/16/22 06/11/22 Rx Ketorolac [Toradol] 10 mg PO Q6HR PRN 06/11/22 06/11/22 History Magnesium Oxide [Magnesium] 500 mg PO DAILY 06/11/22 06/11/22 History Metoprolol Tartrate [Lopressor] 50 mg PO DAILY 06/11/22 06/11/22 History Tamsulosin HCl [Flomax] 0.4 mg PO HS 06/11/22 06/11/22 History Zinc Gluconate [Zinc] 50 mg PO DAILY 06/11/22 06/11/22 History Allergies Allergy/AdvReac Type Severity Reaction Status Date / Time shrimp Allergy Unknown Verified 06/11/22 09:24 Penicillins AdvReac aches Verified 06/11/22 09:24 Surgical - Exam - General well developed, well nourished, no distress - Eyes normal ocular movement, no icteric - ENT no hearing loss, no congestion - Neck no masses, trachea midline - Respiratory normal respiratory effort, clear to auscultation - Abdomen Abdomen: soft, non tender, no guarding, no rigid, no rebound - Integumentary no rash, no abnormal pigmentation - Neurologic no disoriented, no combative - Psychiatric oriented to time, oriented to person, oriented to place, speech is normal, yann ry intact Results - Imaging CT scan - abdomen: report reviewed, image reviewed CT scan - pelvis: report reviewed, image reviewed Assessment and Plan Assessment: Impression: left ureteral stone Plan: left ureteroscopy with laser lithotripsy, possible stent
[~2022-06-12 09:28] MED LIST changes: +DEXAMETHASONE SOD PHOSPHATE 4 MG/ML 1 ML VIAL IV ONE; +HYDROmorphone 0.5 MG/0.5 ML SYRINGE IVP PRN; +LIDOCAINE 1% (10MG/ML) FOR IV START INTRADERMA PRN; +MIDAZOLAM 2 MG/2 ML VIAL IV PRN; +ONDANSETRON 4 MG/2 ML VIAL IVP ONE; +ceFAZolin 3 GM in SODIUM CHLORIDE 0.9% 100 ML IVPB PRN
--- NOTE | 2022-06-12 09:53 | XR ---
EXAMINATION TYPE: XR KUB DATE OF EXAM: 06/12/2022 COMPARISON: NONE HISTORY: Pain left-sided kidney stone TECHNIQUE: One view abdominal series FINDINGS: The osseous structures are intact. The bowel gas pattern is nonspecific. Hypertrophic and degenerati ve changes spine and arthropathy of the hips. There is a punctate 2 mm calcification overlying the right upper quadrant. No definite calcifications overlying the left upper quadrant. Faint calcifications in the right and left hemipelvis overlying t he sacrum likely vascular. IMPRESSION: 1. Nonspecific abdomen. Question punctate 2 mm right renal calculus.
[2022-06-12 11:15] LABS: Glucose,Whole Blood 129 mg/dL (70-110)
[2022-06-12] MEDS ORDERED: fentaNYL (PF) 50 MCG/ML 2 ML AMP ONE (13:16)
[2022-06-12] MEDS ORDERED: ePHEDrine 50 MG/ML 1 ML VIAL ONE (13:16)
[2022-06-12] MEDS ORDERED: LIDOCAINE 2% INJ 20 MG/ML (2 ML VIAL) ONE (13:16)
[2022-06-12] MEDS ORDERED: PROPOFOL 10 MG/ML 20 ML VIAL IV ONE (13:16)
[2022-06-12] MEDS ORDERED: SUCCINYLCHOLINE CHLORIDE 200 MG/10 ML VIAL IV ONE (13:16)
[2022-06-12] MEDS ORDERED: MIDAZOLAM 2 MG/2 ML VIAL ONE (13:16)
[2022-06-12] MEDS ORDERED: LACTATED RINGERS 1,000 ML IV ONE (14:22)
--- NOTE | 2022-06-12 14:47 | P.OP ---
Date of Procedure: 06/12/22 Preoperative Diagnosis: Left ureteral stone with obstruction Postoperative Diagnosis: Same Procedure(s) Performed: [place], left ureteroscopy with laser lithotripsy, placement of 6 x 26 stent Anesthesia: GRACIE Surgeon: Jaspal Norwood Estimated Blood Loss (ml): 25 Pathology: other (Stone) Condition: stable Disposition: PACU Indications for Procedure: Patient is 61. He has a 6-7 mm mid ureteral stone causing obstruction he comes ureteroscopy and laser lithotripsy Description of Procedure: Patient brought operating suite. Given general anesthesia. Placed lithotomy position with sterile prep and drape. Cystoscopy Foroblique lens and 21-Israeli sheath identifies a normal anterior urethra. The prostatic urethra shows marked trilobar obstruction with an intravesical middle lobe. This is making the left ureteral orifice difficult to identify. The bladder simeon heavily trabeculated. I eventually identify the left ureter orifice. I attempted to pass an 035 wire but I cannot. I passed an open-ended catheter to the ureteral orifice and through the open-ended catheter pass a wire up into the kidney. I attempted to pass a semirigid scope up to the stone but I'm unable to do so. I then pass the working sheath over the wire up to the stone. The inner sheath was removed and I passed the flexible ureteroscope up into the stone. The stone is old very hard. With laser lithotripsy and break the stone into tinier fragments up. The fragments are basketed. There is a lot of edema where the stone had lodged. An 035 wires and passed up into the kidney. The ureteroscope and the working sheath is removed. Over the wires backloaded on the cystoscope and over the wires passed a 6 x 26 stent coils in the kidney and in the bladder. The bladder strain the patient is awakened and returned recovery in good condition. Blood loss approximately 25 mL. He tolerated procedure well be discharged home upon recovery.
[2022-06-12 15:03] VITALS: TEMP 97.6
--- NOTE | 2022-06-12 15:03 | FL ---
EXAMINATION TYPE: FL guidance operating room DATE OF EXAM: 06/12/2022 HISTORY: Fluoroscopy time 58 seconds of fluoroscopy provided. IMPRESSION: 1. Fluoroscopy time.
[2022-06-12 16:01] VITALS: RESP 18
[2022-06-12 16:05] VITALS: BP 143/88; PULSE 59
== END 2022-06-12 16:39 | disposition home or self-care (01) ==
LOC: OR 09:28
PROVIDERS: ATTEND Urology
DX: N20.2 Calculus of kidney with calculus of ureter (principal); E78.5 Hyperlipidemia, unspecified; I10 Essential (primary) hypertension; M79.9 Soft tissue disorder, unspecified; M10.9 Gout, unspecified; N40.0 Benign prostatic hyperplasia without lower urinary tract symptoms; K57.92 Diverticulitis of intestine, part unspecified, without perforation or abscess without bleeding; Z90.49 Acquired absence of other specified parts of digestive tract; Z95.5 Presence of coronary angioplasty implant and graft; Z95.1 Presence of aortocoronary bypass graft; Z98.890 Other specified postprocedural states; Z82.49 Family history of ischemic heart disease and other diseases of the circulatory system; Z79.82 Long term (current) use of aspirin; Z79.899 Other long term (current) drug therapy; Z79.1 Long term (current) use of non-steroidal anti-inflammatories (NSAID); Z88.0 Allergy status to penicillin; Z91.013 Allergy to seafood
CPT/HCPCS: 82365; 74018; 52356; C2625; C1769; C1758; J2250; J0330; J0690; J3010; J2704; J2001

== ENCOUNTER → 2022-11-21 | Outpatient (CLI) | payer BC ==
--- NOTE | 2022-11-22 17:33 | MR ---
EXAMINATION TYPE: MR liver wo/w con DATE OF EXAM: 11/21/2022 1:32 PM INDICATION: Patient age:Male; 61 years old; Reason for study: K76.9 LIVER DISEASE, UNSPECIFIED. Liver disease. COMPARISON: CT scan abdomen from 05/15/2022. TECHNIQUE: Multiplanar multi-sequence imaging was performed without contrast. Post contrast imaging was performed. Post IV contrast subtraction images were also submitted for review. IV Contrast: 12 cc Gadavist FINDINGS: LOWER CHEST: No gross irregularity. ABDOMEN Liver: Hepatic steatosis. Segment 7 high T2 low T1 signal 11 mm lesion as seen on prior CT. That demo nstrates progressive enhancement on postcontrast imaging without evidence of washout. Gallbladder and Bile ducts: No ductal dilation. Pancreas: Pancreatic body 7 mm high T2 signal low T1 signal lesion. No evidence postcontrast enhancem ent. The pancreatic duct is not dilated. Spleen: Scattered subcentimeter high T2 signal lesions without evidence for enhancement likely repres enting cysts Adrenal glands: Unremarkable. Kidneys: Mild dilation of the left kidney collecting system. 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 No evidence of obstructive uropathy. Similar right high T2 signal simple cyst. Stomach and Bowel: Unremarkable as visualized. Peritoneum: No evidence of pneumoperitoneum or free fluid. Vasculature: No aortic aneurysm. Musculoskeletal: The osseous structures appear intact. Multilevel disc degeneration changes throughou t the spine. Lymph Nodes: No gross evidence for lymphadenopathy. Abdominal wall: Postsurgical changes to the sternum. IMPRESSION: 1. Hepatic segment 7 enhancing lesion with benign enhancement characteristics favored represent flas h filling hemangioma. No suspicious hepatic lesions. 2. Mild hepatic steatosis. 3. Pancreatic body 7 mm cystic lesion favored to represent sidebranch intraductal papillary mucinous neoplasm. Attention on follow-up imaging in one year with MRI MRCP
== END | disposition home or self-care (01) ==
LOC: RADMRIMAIN 12:18
PROVIDERS: ATTEND Family Medicine
DX: K76.0 Fatty (change of) liver, not elsewhere classified (principal); K76.89 Other specified diseases of liver; K86.89 Other specified diseases of pancreas
CPT/HCPCS: 74183; A9585

== ENCOUNTER → 2023-02-12 | Outpatient (CLI) | payer BC ==
--- NOTE | 2023-02-12 08:43 | CT ---
EXAMINATION TYPE: CT abdomen pelvis wo con DATE OF EXAM: 02/12/2023 COMPARISON: 05/15/2022 HISTORY: Bilateral renal stones. Gross hematuria. CT DLP: 1076.6 mGycm Examination of the solid and hollow viscera is limited given the lack of contrast. FINDINGS: LUNG BASES: No evidence for nodule. No evidence for infiltrate. LIVER/GB: The gallbladder is unremarkable. No space-occupying hepatic lesion. PANCREAS: No pancreatic mass identified. No inflammatory process seen. SPLEEN: No evidence for splenomegaly. No intrasplenic lesions seen. ADRENALS: No adrenal nodules identified. No evidence for thickening. KIDNEYS: Right ureteral stent is noted to be in place with proximal component at the right renal pelv is and distal component within the distal right ureter. Left ureteral stent is also identified with p roximal component at the level of the left renal pelvis and distal component within the urinary bladd er. 3 mm calculus is noted to reside dependently within the urinary bladder. There is a calculus marlee cent to the left ureteral stent at its proximal component (L3-4 level) measuring 4.6 x 2.6 mm. There may be an additional 1 mm calculus along the mid left ureteral stent seen best on coronal image 53 se quence 6. No additional calculi seen with certainty. No evidence of hydronephrosis. BOWEL: Appendix has a normal appearance. No evidence of bowel obstruction. No inflammatory process. Lymph nodes: No evidence for adenopathy greater than 1 cm. Abdominal aorta: Atheromatous changes seen. No evidence for aneurysm. Genital organs: Moderate prostate enlargement. Other: Bilateral fat-containing inguinal hernias. Degenerative changes lumbar spine. IMPRESSION: 1. There is at least one calculus noted adjacent to the proximal left ureteral stent and possibly a s econd at its midportion. See above discussion. 2. Distal right ureteral stent resides within the distal ureter. 3. No additional calculi seen.
== END | disposition home or self-care (01) ==
LOC: RADCTMAIN 08:05
PROVIDERS: ATTEND Urology
DX: N20.1 Calculus of ureter (principal); Z96.0 Presence of urogenital implants
CPT/HCPCS: 74176

== ENCOUNTER → 2023-02-18 | Outpatient (CLI) | payer BC ==
[2023-02-18 11:11] LABS: Appearance,Urine Cloudy (Clear); Bilirubin,Urine Negative (Negative); Blood,Urine Large (Negative); Color,Urine Orange (Yellow); Ketones,Urine Trace (Negative); Nitrite,Urine Negative (Negative); Specific Gravity,Urine 1.023 (1.001-1.030)
[2023-02-18 12:00] LABS: Bacteria,Urine None Seen (None Seen)
[2023-02-18 14:43] LABS: Basophils # (A) 0.04 X 10*3/uL (0.00-0.10); Basophils % (A) 0.7 %; Eosinophils # (A) 0.28 X 10*3/uL (0.04-0.35); Eosinophils % (A) 4.9 %; HCT 40.5 % (39.6-50.0); HGB 13.6 d/dL (12.0-15.0); Lymphocytes # (A) 0.94 X 10*3/uL (0.90-5.00); Lymphocytes % (A) 16.5 %; MCHC 33.6 d/dL (32.0-37.0); MCV 92.3 FL (80.0-97.0); Mean Platelet Volume 10.4 FL (9.5-12.2); Monocytes # (A) 0.37 X 10*3/uL (0.20-1.00); Monocytes % (A) 6.5 %; NRBC Per 100 WBC 0 X 10*3/uL (0.00-0.01); Neutrophils # (A) 4.05 X 10*3/uL (1.80-7.70); Neutrophils % (A) 70.9 %; Platelet Count 223 X 10*3/uL (140-440); RBC 4.39 X 10*6/uL (4.40-5.60); RDW 13.3 % (11.5-14.5); WBC 5.71 X 10*3/uL (4.50-10.00)
[2023-02-19 05:23] LABS: BUN/Creat Ratio 17.88 Ratio (12.00-20.00); Blood Urea Nitrogen 14.3 mg/dL (9.0-27.0); Calcium 9.2 mg/dL (8.7-10.3); Carbon Dioxide 24.8 mmol/L (21.6-31.8); Chloride 104 mmol/L (96-109); Glucose 196 mg/dL (70-110); Sodium 141 mmol/L (135-145)
== END | disposition home or self-care (01) ==
LOC: LABPAT 08:09
PROVIDERS: ATTEND Family Medicine
DX: Z01.812 Encounter for preprocedural laboratory examination (principal); N20.1 Calculus of ureter; R31.29 Other microscopic hematuria
CPT/HCPCS: 80048; 81001; 85025; 87086

== ENCOUNTER 2023-02-25 08:46 | Day surgery (SDC) | payer BC ==
--- NOTE | 2023-02-21 07:35 | P.HPIHPCON ---
History of Present Illness H&P Date: 02/21/23 Chief Complaint: Bilateral ureteral stones This is a 62-year-old male with history of bilateral ureteral stones, underwent bilateral stent insertion. Presents today for definitive stone management. Of note he has a duplicated left collecting system. Option of bilateral ur eteroscopy with holmium laser was discussed with him. Aware of the risk which includes but not limited to bleeding, infection, injury to the ureter. Idiscussed with him given his duplicated system there is a potential I will not be able to reach the left ureteral stone. Of note he also has significant prostate enlargement discuss potential of not being able to access the ureter secondary to his prostate enlargement. He understood all the risk and agreed to proceed with a bilateral ureteroscopy, with holmium laser lithotripsy, stone basketing and bilateral stent removal Consent for Procedure: I have explained the operation/procedure to the patient, including the risks, benefits, side effects, alternative therapies (including not receiving the proposed treatment or service), the likelihood of the patient achieving his/her goals, and potential recuperation problems for the procedure/sedation/analgesia, as well as any blood products, if indicated. I also explained to the patient the risks, benefits and side effects of the alternatives, as well as the risks related to not receiving the proposed procedure, care, treatment, or services. Past Medical History Past Medical History: Atrial Fibrillation, Diabetes Mellitus, Hyperlipidemia, Hypertension, Musculoskeletal Disorder Additional Past Medical History / Comment(s): SEE DR. FRAUSTO'S NOTE FOR CARDIOVASCULAR DETAILS. GOUT. SL VARICOSE VEINS. HX RT SHOULDER DISLOCATION. diverticultitis. History of Any Multi-Drug Resistant Organisms: None Reported Past Surgical History: Appendectomy, Cardiac Ablation, Cardiac Valve Replacement, Coronary Bypass/CABG, Orthopedic Surgery Additional Past Surgical History / Comment(s): November 2018 cardioversion. RT KNEE SURGERY. EPID INJ IN BACK. LASIK EYE SURG., CABG-2014, MITRAL VALVE 2014, stent placed for kidney stone Past Anesthesia/Blood Transfusion Reactions: No Reported Reaction Smoking Status: Never smoker - Past Family History Mother Family Medical History: Hypertension, Myocardial Infarction ([place]) Father Family Medical History: No Reported History Medications and Allergies Home Medications Medication Instructions Recorded Confirmed Type Febuxostat [Uloric] 40 mg PO DAILY 12/21/14 02/20/23 History Aspirin EC [Ecotrin Low Dose] 81 mg PO DAILY 11/18/17 02/20/23 History Atorvastatin Calcium [Lipitor] 40 mg PO HS 12/26/18 02/20/23 History Apixaban [Eliquis] 5 mg PO BID #60 tab 12/30/18 02/20/23 Rx Ascorbic Acid [Vitamin C] 1 tab PO DAILY 02/02/19 02/20/23 History Magnesium Oxide [Magnesium] 500 mg PO DAILY 06/11/22 02/20/23 History Metoprolol Tartrate [Lopressor] 50 mg PO DAILY 06/11/22 02/20/23 History Tamsulosin HCl [Flomax] 0.4 mg PO BID 06/11/22 02/20/23 History Zinc Gluconate [Zinc] 50 mg PO DAILY 06/11/22 02/20/23 History Losartan Potassium [Cozaar] 25 mg PO HS 02/20/23 02/20/23 History Semaglutide [Ozempic] 2 mg SQ WE 02/20/23 02/20/23 History Allergies Allergy/AdvReac Type Severity Reaction Status Date / Time shrimp Allergy Unknown Verified 02/20/23 14:42 Penicillins AdvReac aches Verified 02/20/23 14:42 Surgical - Exam - General no distress, moderate pain - Eyes normal ocular movement, no pale - ENT normal nares, normal mucosa - Respiratory normal expansion, normal respiratory effort Assessment and Plan Assessment: OR for bilateral ureteroscopy, with holmium laser lithotripsy, stone basketing and bilateral stent removal
[~2023-02-25 08:46] MED LIST changes: -ceFAZolin 3 GM in SODIUM CHLORIDE 0.9% 100 ML IVPB PRN
--- NOTE | 2023-02-25 09:12 | XR ---
EXAMINATION TYPE: XR KUB DATE OF EXAM: 02/25/2023 9:04 AM INDICATION: Patient age:Male; 62 years old; Reason for study: N20.1 bilateral ureteral stone; COMPARISON: 02/12/2023 TECHNIQUE: One radiographic view of the abdomen was obtained. FINDINGS: Bilateral ureteral stents with proximal and distal portions but to be in stable position fr om prior CT 02/12/2023. There is a calculus along the left stent graft as seen on prior CT measuring 4 mm. The bowel gas pattern is nonspecific without dilated loops of small or large bowel. There is no evidence for organomegaly or pneumoperitoneum. The osseous structures are intact. No abnormal calci fications are present. Fecal material and gas are demonstrated throughout the colon and rectum. IMPRESSION: 1. Bilateral ureteral stents with proximal and distal portions felt to be in appropriate/stable posi tion. 2. Left ureteral calculus measuring [address] 3. Nonspecific bowel gas pattern without radiographic evidence for acute process.
[2023-02-25 09:45] LABS: Glucose,Whole Blood 119 mg/dL (70-110)
[2023-02-25] MEDS ORDERED: SUCCINYLCHOLINE CHLORIDE 200 MG/10 ML VIAL IV ONE (10:21)
[2023-02-25] MEDS ORDERED: PROPOFOL 10 MG/ML 20 ML VIAL IV ONE (10:21)
[2023-02-25] MEDS ORDERED: ROCURONIUM 10 MG/ML (5 ML VIAL) IV ONE (10:21)
[2023-02-25] MEDS ORDERED: PHENYLEPHRINE-0.9% NACL SYG 1,000 MCG/10 ML SYRINGE ONE (10:21)
[2023-02-25] MEDS ORDERED: MIDAZOLAM 2 MG/2 ML VIAL ONE (10:21)
[2023-02-25] MEDS ORDERED: ePHEDrine 50 MG/ML 1 ML VIAL ONE (10:21)
[2023-02-25] MEDS ORDERED: GLYCOPYRROLATE 0.2 MG/ML 2 ML VIAL ONE (10:21)
[2023-02-25] MEDS ORDERED: LIDOCAINE 2% INJ 20 MG/ML (2 ML VIAL) ONE (10:21)
[2023-02-25] MEDS ORDERED: NEOSTIGMINE 1 MG/ML 10 ML VIAL ONE (10:21)
[2023-02-25] MEDS ORDERED: LACTATED RINGERS 1,000 ML IV ONE ×2 (11:50→14:48)
--- NOTE | 2023-02-25 12:18 | FL ---
Intraoperative/procedural fluoroscopic services were provided. Total fluoroscopy time is 175.9 second s with a total of 3 submitted images to PACS. Please see the operative/procedural note for further de tails. DAP: 2.43 mGym2
[2023-02-25 12:21] VITALS: TEMP 96.8
--- NOTE | 2023-02-25 12:41 | P.OP ---
Date of Procedure: 02/25/23 Preoperative Diagnosis: Bilateral ureteral stones Postoperative Diagnosis: Same Procedure(s) Performed: Cystoscopy, bilateral ureteroscopy, left sided holmium laser lithotripsy stone basketing and bilateral stent removal Implants: None Anesthesia: MICHELLEA Surgeon: Santosh Clements Estimated Blood Loss (ml): 10 Pathology: other (Left ureteral stone) Condition: stable Disposition: PACU Indications for Procedure: This is a 62-year-old male with history of bilateral ureteral stones, underwent bilateral stent insertion. Presents today for definitive stone management. Of note he has a duplicated left collecting system. Option of bilateral ureteroscopy with holmium laser was discussed with him. Aware of the risk which includes but not limited to bleeding, infection, injury to the ureter. Idiscussed with him given his duplicated system there is a potential I will not be able to reach the left ureteral stone. Of note he also has significant prostate enlargement discuss potential of not being able to access the ureter secondary to his prostate enlargement. He understood all the risk and agreed to proceed with a bilateral ureteroscopy, with holmium laser lithotripsy, stone basketing and bilateral stent removal Operative Findings: Duplicated left ureter, with splitting of the ureter and then midportion of the ureter. 2 stones within the left proximal ureter. Small stone in the right ureter . Description of Procedure: Patient brought to the operating room, general anesthesia was induced. He was prepped and draped in sterile fashion and placed in dorsal lithotomy position cystoscopy fitted with 21-[place] sheath was inserted per urethra, cystoscopy was performed which showed no abnormality within the bladder. Patient had significant prostate enlargement with enlargement of the medial lobe with significant intravesical extension. The left stent was grasped using a stent grasper and removed to the meatus. Next a sensor wire was advanced through the stent, the stent was removed with the wire in place. At this time it appeared that the right stent has migrated into the distal ureter. At this time a semirigid ureteroscope was advanced per urethra. The ureteroscope was advanced up the right ureteral orifice and the stent was seen using the 3 prong grasper the stent was removed intact, there was a small stone that fell out one the stent was removed. At This time the semirigid ureteroscope was reinserted and advanced all the way up to the proximal ureter which showed no stones, pullback ureteroscopy was performed showed no stones or injury to the ureter. At this ti me attention was carried to the left side, a [id number] access sheath was passed over the wire and into the mid ureter. This time a flexible ureteroscope was inserted through the access sheath, I was able to navigate ureteroscope into the upper moiety, at this time 2 stones were encountered. Using the holmium laser the stones were fragmented, sizable fragments were removed using stone basket. Repeat ureteroscopy and renoscopy showed no sizable stones or injury to the kidney. Pullback ureteroscopy was performed which showed no injury to the ureter or any ureteral stones. There was minimal bilateral ureteral edema thus stent was not placed. The bladder was emptied at the end of the case. Patient tolerated procedure well taken to recovery in stable condition
[2023-02-25 12:49] VITALS: RESP 16
[2023-02-25] MEDS ORDERED: KETOROLAC 15 MG/ML 1 ML VIAL ONE (14:37)
[2023-02-25] MEDS ORDERED: KETOROLAC 15 MG/ML 1 ML VIAL IVP ONE (14:38)
[2023-02-25 14:55] VITALS: BP 148/86; PULSE 69
== END 2023-02-25 17:21 | disposition home or self-care (01) ==
LOC: OR 08:46
PROVIDERS: ATTEND Urology
DX: N20.1 Calculus of ureter (principal); N40.0 Benign prostatic hyperplasia without lower urinary tract symptoms; I10 Essential (primary) hypertension; E78.5 Hyperlipidemia, unspecified; E11.9 Type 2 diabetes mellitus without complications; I48.91 Unspecified atrial fibrillation; M10.9 Gout, unspecified; I83.90 Asymptomatic varicose veins of unspecified lower extremity; Z79.01 Long term (current) use of anticoagulants; Z79.82 Long term (current) use of aspirin; Z79.84 Long term (current) use of oral hypoglycemic drugs; Z79.899 Other long term (current) drug therapy; Z88.0 Allergy status to penicillin; Z91.013 Allergy to seafood
CPT/HCPCS: 82365; 74018; 52353; C1769; J2250; J0330; J1100; J2710; J0690; J2405; J1885; J2370; J2704; J1170; J2001

== ENCOUNTER 2023-03-04 18:58 | Emergency (ER) | payer BC ==
--- NOTE | 2023-03-04 19:09 | ED ---
Chest Pain HPI - General Source: patient Mode of arrival: ambulatory Limitations: no limitations <Reese Pittman - Last Filed: 03/04/23 19:09> <Nash Guerrier - Last Filed: 03/04/23 22:19> - General Chief Complaint: Chest Pain Stated Complaint: Chest Pain/left arm pain Time Seen by Provider: 03/04/23 19:08 - History of Present Illness Initial Comments: This is a 62-year-old male with a past medical history including hypertension, diabetes as well as mitral valve replacement presents emergency department for left-sided chest pain. The patient stated that this pain began 3 hours prior to arrival and he did state the chest pain felt like a heavy pressure sensation to the middle of the chest with pain over the last of the chest on the left arm. The patient did state that he had some minor sweatiness with this but denied any nausea or vomiting. The patient stated that he has never had issues with this in the past and was concerned about heart attacks we came into the emergency department for evaluation. The patient denied any other acute pain or complete at this time. (Nash Guerrier) - Related Data Home Medications Medication Instructions Recorded Confirmed Febuxostat [Uloric] 40 mg PO DAILY 12/21/14 03/04/23 Aspirin EC [Ecotrin Low Dose] 81 mg PO DAILY 11/18/17 03/04/23 Atorvastatin Calcium [Lipitor] 40 mg PO HS 12/26/18 03/04/23 Ascorbic Acid [Vitamin C] 500 mg PO DAILY 02/02/19 03/04/23 Magnesium Oxide [Magnesium] 500 mg PO DAILY 06/11/22 03/04/23 Metoprolol Tartrate [Lopressor] 50 mg PO DAILY 06/11/22 03/04/23 Tamsulosin HCl [Flomax] 0.4 mg PO BID 06/11/22 03/04/23 Zinc Gluconate [Zinc] 50 mg PO DAILY 06/11/22 03/04/23 Losartan Potassium [Cozaar] 25 mg PO HS 02/20/23 03/04/23 Semaglutide [Ozempic] 2 mg SQ WE 02/20/23 03/04/23 Previous Rx's Medication Instructions Recorded Apixaban [Eliquis] 5 mg PO BID #60 tab 12/30/18 Allergies Allergy/AdvReac Type Severity Reaction Status Date / Time shrimp Allergy Unknown Verified 03/04/23 19:03 Penicillins AdvReac aches Verified 03/04/23 19:03 Review of Systems ROS Other: All systems not noted in ROS Statement are negative. <Reese Pittman - Last Filed: 03/04/23 19:09> ROS Other: All systems not noted in ROS Statement are negative. <Nash Guerrier - Last Filed: 03/04/23 22:19> ROS Statement: Those systems with pertinent positive or pertinent negative responses have been documented in the HPI. EKG Findings - EKG Comments: EKG Findings:: An EKG was obtained and was interpreted by myself showing a rate of 66, W[place] interval 163, QRS duration 112 and QTC of 433. This EKG showed a no rmal sinus rhythm without any ST segment elevation or depression noted. <Nash Guerrier - Last Filed: 03/04/23 22:19> Past Medical History Past Medical History: Hypertension, Mitral Valve Prolapse (MVP) Additional Past Medical History / Comment(s): Kidney stones, History of Any Multi-Drug Resistant Organisms: None Reported Past Surgical History: Appendectomy, Cardiac Valve Replacement, Coronary Bypass/CABG, Orthopedic Surgery Additional Past Surgical History / Comment(s): November 2018 cardioversion. RT KNEE SURGERY. EPID INJ IN BACK. LASIK EYE SURG., CABG-2014, MITRAL VALVE 2014 Past Anesthesia/Blood Transfusion Reactions: No Reported Reaction Past Psychological History: No Psychological Hx Reported Smoking Status: Never smoker Past Alcohol Use History: None Reported Past Drug Use History: None Reported - Past Family History Mother Family Medical History: Hypertension, Myocardial Infarction ([place]) Father Family Medical History: No Reported History <Reese Pittman - Last Filed: 03/04/23 19:09> General Exam Limitations: no limitations <Reese Pittman - Last Filed: 03/04/23 19:09> Limitations: no limitations General appearance: alert, in no apparent distress, obese Head exam: Present: atraumatic, normocephalic, normal inspection Eye exam: Present: normal appearance, PERRL Pupils: Present: normal accommodation ENT exam: Present: normal exam, normal oropharynx, mucous membranes moist Neck exam: Present: normal inspection, full ROM Respiratory exam: Present: normal lung sounds bilaterally. Absent: chest wall tenderness Cardiovascular Exam: Present: regular rate, normal rhythm, normal heart sounds GI/Abdominal exam: Present: soft, normal bowel sounds Extremities exam: Present: normal inspection, full ROM Back exam: Present: normal inspection, full ROM Neurological exam: Present: alert, oriented X3, CN II-XII intact Psychiatric exam: Present: normal affect, normal mood Skin exam: Present: warm, dry <Nash Guerrier - Last Filed: 03/04/23 22:19> Course Vital Signs 03/04/23 03/04/23 03/04/23 18:59 19:37 21:01 Temperature 98.5 F Pulse Rate 67 68 72 Respiratory 18 16 16 Rate Blood Pressure 137/79 133/73 133/81 O2 Sat by Pulse 97 97 95 Oximetry 03/04/23 21:41 Temperature 98.4 F Pulse Rate 72 Respiratory 18 Rate Blood Pressure 130/78 O2 Sat by Pulse 98 Oximetry Chest Pain MDM <Nash Guerrier - Last Filed: 03/04/23 22:19> - MDM Was pt. sent in by a medical professional or institution (, PA, BUTTONER, urgent care, hospital, or [facility]...) When possible be specific @ -No Did you speak to anyone other than the patient for history (EMS, parent, family, police, friend...)? What history was obtained from this source @ -No Did you review nursing and triage notes (agree or disagree)? Why? @ -I reviewed and agree with nursing and triage notes Were old charts reviewed (outside hosp., previous admission, EMS record, old EKG, old radiological studies, urgent care reports/EKG's, [facility] records)? Report findings @ -No old charts were reviewed Differential Diagnosis (chest pain, altered mental status, abdominal pain women, abdominal pain men, vaginal bleeding, weakness, fever, dyspnea, syncope, headache, dizziness, GI bleed, back pain, seizure, CVA, palpatations, mental health)? @ -ACS, pneumonia, pneumothorax, musculoskeletal strain EKG interpreted by me (3pts min.). @ -As above X-rays interpreted by me (1pt min.). @ -Chest x-ray was obtained and was interpreted by myself showing no acute process. CT interpreted by me (1pt min.). @ -None done U/S interpreted by me (1pt. min.). @ -None done What testing was considered but not performed or refused? (CT, X-rays, U/S, labs)? Why? @ -None What meds were considered but not given or refused? Why? @ -None Did you discuss the management of the patient with other professionals (professionals i.e. , PA, BUTTONER, lab, RT, psych nurse, social service director, music sound light technician, teacher, flight deck officer, case briefer)? Give summary @ -No Was smoking cessation discussed for >3mins.? @ -No Was critical care preformed (if so, how long)? @ -No Were there social determinants of health that impacted care today? How? (Homelessness, low income, unemployed, alcoholism, drug addiction, transportation, low edu. Level, literacy, decrease access to med. care, halfway, re hab)? @ -No Was there de-escalation of care discussed even if they declined (Discuss DNR or withdrawal of care, Hospice)? DNR status @ -No What co-morbidities impacted this encounter? (DM, HTN, Smoking, COPD, CAD, Cancer, CVA, ARF, Chemo, Hep., AIDS, mental health diagnosis, sleep apnea, morbid obesity)? @ -Hypertension, diabetes Was patient admitted / discharged? Hospital course, mention meds given and route, prescriptions, significant lab abnormalities, going to OR and other pert inent info. @ -The patient was seen and evaluated emergency department. Physical exam, the patient was resting in bed without any acute distress. Vital signs admission were stable. Due to the nature the patient's complaints, laboratory workup and chest x-ray and EKG were obtained. All workup was negative. The patient was told of the workup was negative but was also given a dose of morphine in the emergency department. On reevaluation, the patient's pain had completely resolved and he did state that he wanted to be discharged to follow-up as an outpatient. I did offer acute the patient in observation to be seen by cardiology in the morning however he refused to do this and instead was a collie office in the morning for a follow-up appointment. I did agree to allow this plan and did tell the patient to report to the emergency department if his pain or symptoms became acutely worse. The patient was agreeable to this and all his questions were answered. The patient was discharged home in stable condition. Undiagnosed new problem with uncertain prognosis? @ -No Drug Therapy requiring intensive monitoring for toxicity (Heparin, Nitro, Insulin, Cardizem)? @ -No Were any procedures done? @ -No Diagnosis/symptom? @ -Chest pain, NOS Acute, or Chronic, or Acute on Chronic? @ -Acute Uncomplicated (without systemic symptoms) or Complicated (systemic symptoms)? @ -Uncomplicated Side effects of treatment? @ -No Exacerbation, Progression, or Severe Exacerbation? @ -No Poses a threat to life or bodily function? How? (Chest pain, [place], [place], pneumonia, PE, COPD, DKA, ARF, appy, cholecystitis, CVA, Diverticulitis, Homicidal, Suicidal, threat to staff... and all critical care pts) @ -No (Nash Guerrier) Disposition <Reese Pittman - Last Filed: 03/04/23 19:09> Is patient prescribed a controlled substance at d/c from ED?: No Time of Disposition: 21:15 <Nash Guerrier - Last Filed: 03/04/23 22:19> Clinical Impression: Chest pain Disposition: HOME SELF-CARE Condition: Stable Instructions (If sedation given, give patient instructions): Chest Pain (ED) Referrals: Dionicio Holguin DO [Primary Care Provider] - 1-2 days
[2023-03-04 19:52] LABS: Basophils % (A) 0 %; Eosinophils # (A) 0.4 k/uL (0-0.7); Eosinophils % (A) 5 %; HGB 14.2 gm/dL (13.0-17.5); Lymphocytes # (A) 1.6 k/uL (1.0-4.8); Lymphocytes % (A) 21 %; MCH 31.4 pg (25.0-35.0); MCHC 34.8 g/dL (31.0-37.0); MCV 90.4 fL (80.0-100.0); Mean Platelet Volume 7.8; Monocytes # (A) 0.4 k/uL (0-1.0); Monocytes % (A) 5 %; Neutrophils % (A) 66 %; Platelet Count 215 k/uL (150-450); RBC 4.53 m/uL (4.30-5.90); RDW 13.7 % (11.5-15.5); WBC 7.6 k/uL (3.8-10.6)
[2023-03-04 19:53] LABS: Partial Thromboplastin Time 29.1 sec (22.0-30.0); Prothrombin Time 10.5 sec (9.0-12.0)
[2023-03-04 19:58] LABS: ALT 27 U/L (4-49); AST 30 U/L (17-59); African American GFR (CKD) >90 (>60 ml/min/1.73 sqM); Albumin 3.9 g/dL (3.5-5.0); Alkaline Phosphatase 69 U/L (38-126); Anion Gap 8 mmol/L; Blood Urea Nitrogen 15 mg/dL (9-20); Calcium 8.9 mg/dL (8.4-10.2); Carbon Dioxide 25 mmol/L (22-30); Chloride 105 mmol/L (98-107); Glucose 129 mg/dL (74-99); Magnesium 1.9 mg/dL (1.6-2.3); Non-African American GFR(CKD) >90 (>60 ml/min/1.73 sqM); Potassium 4.3 mmol/L (3.5-5.1); Sodium 138 mmol/L (137-145); Total Protein 6.7 g/dL (6.3-8.2)
[2023-03-04] MEDS ORDERED: MORPHINE SULFATE 4 MG/ML SYRINGE IVP STA (20:46)
[2023-03-04 21:02] VITALS: PULSE 72
--- NOTE | 2023-03-04 21:22 | XR ---
EXAMINATION TYPE: XR chest 2V DATE OF EXAM: 03/04/2023 COMPARISON: 12/26/2018 INDICATION: Chest pain TECHNIQUE: Frontal and lateral views of the chest are obtained. FINDINGS: The heart size is normal. The pulmonary vasculature is normal. The lungs are clear. IMPRESSION: 1. No acute pulmonary process.
[2023-03-04 21:41] VITALS: BP 130/78; RESP 18; TEMP 98.4
== END 2023-03-04 21:42 | disposition home or self-care (01) ==
LOC: EC 18:58
DX: R07.89 Other chest pain (principal); I10 Essential (primary) hypertension; Z79.899 Other long term (current) drug therapy; Z79.82 Long term (current) use of aspirin; Z91.018 Allergy to other foods; Z88.0 Allergy status to penicillin
CPT/HCPCS: 36415; 93005; 80053; 83735; 84484; 85025; 85610; 85730; 71046; 99285; 96374; J2270

== ENCOUNTER → 2024-10-26 | Outpatient (CLI) | payer BC ==
--- NOTE | 2024-10-26 08:49 | MR ---
EXAMINATION TYPE: MR Prostate wo/w con DATE OF EXAM: 10/26/2024 8:46 AM COMPARISON: None. CLINICAL INDICATION: Male, 63 years old with history of R97.20 elevated PSA; Elevated PSA. TECHNIQUE: Multi-planar, multi-sequence imaging of the pelvis is performed prior to and following the uncomplicated administration of bolus intravenous gadolinium. IV Contrast: 12 mL Gadobutrol Interpretive Criteria: PI-RADS v2.1 SERUM PSA: 24 = 4.83 - = 4.66 SURGICAL PATHOLOGY: No data available. FINDINGS: Prostatic dimensions: 6.6 x 6.9 x 5.1 cm. Ellipsoid Volume:121.61 (PSA density=0.04 ng/mL/mL) CENTRAL GLAND (Central and Transition Zones/CZ+TZ): Multiple bilateral, heterogenous appearing hypertrophic stromal nodules, without suspicious lesion. M edian lobe hypertrophy with protrusion into the base of the bladder. (PI-RADS 2) PERIPHERAL ZONE (PZ): Bilateral linear, indistinct wedgelike areas of low ADC, and low T2 signal, No evidence of masslike a bnormality, or localized perfusional hypervascularity, to further suggest a focus of clinically signi ficant prostate cancer. (PI-RADS 2) SEMINAL VESICLES (SV): Symmetric and unremarkable. PERIPROSTATIC TISSUES: Unremarkable. LYMPH NODES: No enlarged pelvic lymph node. REMAINING PELVIS: Bladder wall is within normal limits given distention. No abnormal free or organized intrapelvic fluid collection. No pathologic bowel dilation or mural thickening. Colonic diverticula are present. Bilateral fat containing inguinal hernias. OSSEOUS STRUCTURES: No suspicious osseous abnormality. IMPRESSION: 1. No specific features for high-risk prostate cancer. Maximum PI-RADS score: 2. 2. Substantial BPH, estimated gland volume 121.61 mL. 3. No suspicious osseous lesion. No lymphadenopathy. No evidence of prostate adenocarcinoma involving the periprostatic tissues. [facility], , 10/26/2024 8:46 AM
== END | disposition home or self-care (01) ==
LOC: RADMRIMAIN 06:55
PROVIDERS: ATTEND Urology
DX: N40.0 Benign prostatic hyperplasia without lower urinary tract symptoms (principal); R97.20 Elevated prostate specific antigen [PSA]
CPT/HCPCS: 72197; A9585